=== PATIENT | male | born 1955 | race Caucasian/White ===

== ENCOUNTER 2023-08-23 18:32 | Emergency (ER) | payer MEDICARE, OTHER, SELFPAY ==
[2023-08-23 18:35] VITALS: BP 145/94
--- NOTE | 2023-08-23 19:04 | ED.GENMED ---
History of Present Illness
General
Chief Complaint: Back Pain
Source: patient
Exam Limitations: none
Time Seen by Provider: 08/23/23 18:49
History of Present Illness
History of Present Illness:
67-year-old male presents complaining of right flank pain that started 3 to 4 days ago. Its intermittent pain. Notes worse with motion change. No radiation of the pain down the legs. No urinary symptoms. No nausea or vomiting. Patient believes
though he has a kidney infection. No other complaints at this time
Past History
Past History
ED Past Medical History: None
Social History
Tobacco: Non-smoker
Alcohol: None
Family History
Family History: Negative Early CAD
Phy Exam
Physical Exam
Physical Exam:
General: Well-appearing male no acute respiratory distress
HEENT: Normocephalic atraumatic
Heart: Regular rate and rhythm no murmurs
Lungs: Clear no wheeze or rales
Musculoskeletal exam: Right flank tenderness is noted.
Abdomen: Soft nontender nondistended no guarding or rebound
ext: No cyanosis or edema.
Course
Orders/Labs/Results
Orders:
Orders
08/23/23 19:03
CT Abd/pel Without Iv Or Oral Urgent
Comment:
Reason For Exam: right flank pain
08/23/23 19:45
Complete Blood Count/With Diff Urgent
Comprehensive Metabolic Panel Urgent
Urinalysis Reflex To Culture Urgent
Date Specimen was Collected: 08/23/23
Time Specimen was Collected: 19:16
Urine Microscopic Reflex Cult Urgent
Urine Culture Urgent
ROSALIE Source: U
Specimen Description:
Date Specimen was Collected: 08/23/23
Time Specimen was Collected: 19:16
08/23/23 19:50
Ct Chest/Abd/Pel Angio W/Wo Iv Urgent
Reason For Exam: mid back pain
Abnormal Lab Results
08/23/23
19:45
WBC 13.2 H 10^3/uL
(4.8-10.8)
RDW 14.9 H %
(11.5-14.5)
Abs Immat Gran (auto) 0.2 H 10^3/uL
(0-0.05)
Absolute Neuts (auto) 9.7 H 10^3/uL
(1.4-6.5)
Absolute Monos (auto) 1.0 H 10^3/uL
(0.1-0.6)
Immature Gran % 1.3 H %
(0-0.5)
Lymphocytes % 15.6 L %
(20.5-51.1)
Glucose 126 H mg/dl
(70-99)
Urine Bilirubin 1+ A
(Negative)
Leukocyte Esterase Rfl Trace A
(Negative)
Urine Bacteria (Reflex) Moderate A
(Negative)
08/23/23 19:45
08/23/23 19:45
Vital Signs
Initial and Last Documented VS:
Initial Vital Signs
Temp Pulse Resp BP Pulse Ox
98.0 F 95 16 145/94 98
08/23/23 18:35 08/23/23 18:35 08/23/23 18:35 08/23/23 18:35 08/23/23 18:35
Last Documented Vital Signs
Temp Pulse Resp BP Pulse Ox
98.0 F 90 18 135/70 95
08/23/23 18:35 08/23/23 20:23 08/23/23 20:23 08/23/23 20:24 08/23/23 20:30
MDM/Problems Addressed
Differential Diagnosis Includes:
Mid back and right flank pain. Consider musculoskeletal flank pain versus renal colic versus infection
Urinalysis pending labs pending. CT
*Critical Care Note
Total Time (30-74mins, 75-104mins- exclusive of procedures): Not Applicable
Update Note
Update Note:
Initial CT to evaluate for right flank pain was negative for renal stones however did demonstrate 5 cm abdominal aortic aneurysm with internal calcification. Dissection could not be ruled out. This was followed by CT angiogram of the chest abdomen
pelvis was confirms a 5.1 cm fusiform abdominal aortic aneurysm without cute dissection. Urinalysis shows bacteria in the urine. White blood cell count in the blood is 13,000. Will cover with antibiotic for potential UTI. Will recommend close
follow-up with vascular specialist for evaluation of his abdominal aortic aneurysm
ED Attending Note
-
Portions of this chart may have been created with voice recognition software.� Occasional wrong word or��sound alike� substitutions may have occurred due to the inherent limitations of voice recognition software.
Discharge Plan
Departure
Patient Disposition: Home (Routine Discharge)
Date of Disposition: 08/23/23
Time of Disposition: 21:40
Patient with high blood pressure during this ER visit?: No
Discharge Problem:
Acute UTI, AAA (abdominal aortic aneurysm)
Prescriptions:
New
cefdinir 300 mg capsule
300 mg PO BID Qty: 14 0RF
No Action
ibuprofen [Advil] 200 MG tablet
200 mg PO PRN PRN (Reason: pain)
Patient Comments:
not sure of dose, usually takes 2-3 bid prn
atorvastatin 40 MG tablet
40 mg PO QPM Qty: 30 2RF
acetaminophen 325 MG tablet
325 mg PO Q4HPRN PRN (Reason: mild pain) Qty: 0 0RF
famotidine 40 MG tablet
40 mg PO DAILY Qty: 30 2RF
clopidogrel 75 MG tablet
75 mg PO DAILY Qty: 30 11RF
aspirin 81 MG tablet,delayed release (DR/EC)
81 mg PO DAILY Qty: 0 0RF
carvedilol 3.125 MG tablet
3.125 mg PO BID Qty: 60 2RF
nitroglycerin 0.4 MG tablet, sublingual
0.4 mg sublingual [id number] PRN (Reason: chest pain) Qty: 25 2RF
Referrals:
Rose Marie John MD [Family Provider] -
Navdeep Servin MD [Active] -
Activity Restrictions/Additional Instructions:
Take antibiotics as directed. As discussed, you have an abdominal aortic aneurysm. This needs to be followed up closely with a vascular specialist, a name was provided on this paperwork. Please call them tomorrow to set an appointment. Return
here for worsening symptoms otherwise
Interventions
Interventions:
*Risk Screen - Suicide Last Done: 08/23/23 20:16
*General Assessment Last Done: 08/23/23 19:28
*Neglect/Abuse Screening Last Done: 08/23/23 20:16
ED- Fall Risk Assessment Last Done: 08/23/23 19:42
*ED COVID-19 Vaccine History Last Done: 08/23/23 18:35
ED-Musculoskeletal Assessment Last Done: 08/23/23 20:35
Discharge Date and Time
Print Language: MALAY
[2023-08-23 19:28] VITALS: BMI 35.9
[2023-08-23 19:53] LABS: % Basophils 0.5 % (0-2); % Immature Granulocytes 1.3 % (0-0.5); % Lymphocytes 15.6 % (20.5-51.1); % Monocytes 7.9 % (1.7-9.3); % Neutrophils 73.7 % (42.2-75.2); Absolute Basophils 0.1 10^3/uL (0-0.2); Absolute Eosinophils 0.1 10^3/uL (0-0.7); Absolute Immature Granulocytes 0.2 10^3/uL (0-0.05); Absolute Lymphocytes 2.1 10^3/uL (1.2-3.4); Absolute Neutrophils 9.7 10^3/uL (1.4-6.5); Hematocrit 46.2 % (39.0-52.0); Hemoglobin 15.5 g/dL (13.0-18.0); Mean Corp Hgb Conc. 33.5 g/dL (33.0-37.0); Mean Corpuscular Hgb 28.9 pg (27.0-31.0); Mean Platelet Volume 9.6 fL (7.4-10.4); Nucleated Red Blood Cells % 0 % (-); Platelet Count 300 10^3/uL (130-400); Red Blood Cell Count 5.37 10^6/uL (4.70-6.10); Red Cell Dist. Width 14.9 % (11.5-14.5); White Blood Cell Count 13.2 10^3/uL (4.8-10.8)
[2023-08-23 19:57] LABS: Urine Albumin Negative (Neg - Trace); Urine Bilirubin 1+ (Negative); Urine Character Clear (Clear); Urine Color Yellow; Urine Glucose Negative (Negative); Urine Ketone Negative (Negative); Urine Leukocyte Trace (Negative); Urine Nitrite Negative (Negative); Urine Occult Blood Negative (Negative); Urine Urobilinogen 1+ (Neg - 1+)
[2023-08-23 20:06] LABS: Urine Bacteria Moderate (Negative); Urine Mucus Moderate; Urine Red Blood Cell 0-2 /HPF (0-2)
[2023-08-23 20:07] LABS: ALT (SGPT) 24 U/L (0-50); AST (SGOT) 23 U/L (17-59); Albumin 4.1 g/dl (3.5-5.0); Alkaline Phosphatase 113 U/L (38-126); Blood Urea Nitrogen 16 mg/dl (9-20); Calcium 9.8 mg/dl (8.4-10.2); Carbon Dioxide 29 mmol/L (22-30); Chloride 104 mmol/L (98-107); Estimated Creatinine Clearance > 125 ml/min; Glucose 126 mg/dl (70-99); Potassium 3.7 mmol/L (3.5-5.1); Sodium 139 mmol/L (135-145); Total Bilirubin 0.8 mg/dl (0.2-1.3); Total Protein 7.2 g/dl (6.3-8.2); eGFR > 60.00
[2023-08-23 20:23] VITALS: BP 135/70
[2023-08-23 20:24] VITALS: BP 135/70
[2023-08-23 21:33] VITALS: BP 135/88
== END 2023-08-23 22:03 | disposition home or self-care (01) ==
LOC: EMR 18:32
PROVIDERS: Physician Assistant; EMERGENCY PHYSICIAN Emergency Medicine; FAMILY PHYSICIAN Family Medicine
DX: R10.9 Unspecified abdominal pain (principal); M54.6 Pain in thoracic spine; N39.0 Urinary tract infection, site not specified; I71.40 Abdominal aortic aneurysm, without rupture, unspecified; Z79.82 Long term (current) use of aspirin
CPT/HCPCS: 99285; 71275; 74174; 74176; 80053; 81003; 81015; 85025; 87086; Q9967

== ENCOUNTER → 2023-09-28 08:25 | Outpatient (REF) | payer OTHER, SELFPAY | LOC: DHCBC/DCA 08:25 | PROVIDERS: ATTENDING PHYSICIAN Internal Medicine Cardiovascular Disease; FAMILY PHYSICIAN Family Medicine | DX: Z01.818 Encounter for other preprocedural examination (principal); I71.40 Abdominal aortic aneurysm, without rupture, unspecified; I25.2 Old myocardial infarction | CPT/HCPCS: 78452; 93017; A9500; J2785 ==

== ENCOUNTER 2023-09-30 06:45 | Day surgery (SDC) | payer OTHER, SELFPAY ==
[2023-09-30] VITALS (9 sets, daily range): BP systolic 127–171; BP diastolic 66–95; BMI 38.4
[2023-09-30] MEDS: NSS 343 ML IV (07:30)
[2023-09-30 07:36] LABS: Glucose - Point of Care 114 mg/dl (70-99)
[2023-09-30 09:41] LABS: ACT-LR - POC 282 Seconds (116-155)
[2023-09-30 10:18] LABS: Glucose - Point of Care 104 mg/dl (70-99)
--- NOTE | 2023-09-30 10:41 | ITS.CL.CATH ---
[employer] - Catheterization
Cardiac Catheterization
Procedure Report:
LEFT HEART CATHETERIZATION
Date of Procedure: September 30, 2023
Referring: Domingo Lawson
PROCEDURES:
1. Left catheterization, coronary angiogram.
2. Ultrasound-guided access.
3. Physiologic functional testing with IFR of in-stent restenosis in the distal RCA.
INDICATION: Abnormal stress test
ACCESS: Right radial artery, 6 Algerian sheath, under ultrasound guidance
HEMODYNAMICS : (mmHg)
AO (s/d) : 108/73
LV (s/d) : 112/9
LVEDP : 12
CORONARY FINDINGS
DOMINANCE: Right
LEFT MAIN: The left main is a large-caliber vessel which gives rise to the left into descending artery and left circumflex artery. There is minimal luminal irregularities.
LEFT ANTERIOR DESCENDING: The left into descending artery is a large-caliber vessel which gives rise to multiple small caliber diagonal branches as it courses through the anterior interventricular groove towards the apex. There is minimal luminal
irregularities.
CIRCUMFLEX: The left circumflex artery is a medium caliber vessel which gives rise to 2 major obtuse marginal branches. There is mild diffuse atherosclerotic plaque.
RIGHT CORONARY ARTERY: The right coronary artery is a large-caliber, dominant vessel which is rise to the right posterior descending artery and a large right posterolateral system. There is mild diffuse atherosclerotic plaque in the proximal to mid
RCA. Previously placed mid to distal RCA stents from 2013 and have 50% in-stent restenosis at worst. iFR was performed here which was negative at 0.99.
HEMODYNAMIC ASSESSMENT OF THE DISTAL RCA WITH A 22nd Century [employer] OMNI WIRE: The origin of the right coronary was cannulated with a 6 Fr JR4 guide catheter. Intravenous heparin was administered and the ACT was followed during the procedure. Two hundred
micrograms of intracoronary nitroglycerin was given through the guide catheter. A Runge Omni wire was advanced to the guide catheter tip and normalized just outside of guide catheter. The Omni wire was then carefully manipulated across the
in-stent restenosis of distal RCA with the iFR below the ischemic threshold serially measuring 0.99, 1.0, 1.0. The Omni wire was then pulled back to the guide catheter where the Pd/Pa measured 1.0 confirming no baseline drift in pressure readings
SEDATION: 50 minutes of procedural sedation was utilized. An independent director medical science was present to assist with and help manage the patient's level of consciousness and physiologic status.
RADIATION SUMMARY: Fluoro Time (min): 4.5, Dose (mGy): 495.88, DAP (Gy.cm2) : 45.8
Closure Device: Vascular band over right radial artery, 13 cc of air.
CONCLUSIONS
1. Non-obstructive coronary artery disease.
2. 50% in-stent restenosis of previously placed mid and distal RCA stents, IFR negative at 0.99.
3. Normal LVEDP at 12 mmHg.
RECOMMENDATIONS
1. Wean radial band per protocol.
2. Continued aggressive management of cardiovascular risk factors.
Copy to: Domingo Lawson
Anais Cheng MD, [facility], [facility]
== END 2023-09-30 12:48 | disposition home or self-care (01) ==
LOC: CATH 06:45
PROVIDERS: ATTENDING PHYSICIAN Internal Medicine Interventional Cardiology; FAMILY PHYSICIAN Family Medicine
DX: I25.10 Atherosclerotic heart disease of native coronary artery without angina pectoris (principal); R94.39 Abnormal result of other cardiovascular function study; T82.855A Stenosis of coronary artery stent, initial encounter; Y83.1 Surgical operation with implant of artificial internal device as the cause of abnormal reaction of the patient, or of later complication, without mention of misadventure at the time of the procedure; Z79.899 Other long term (current) drug therapy; Z79.84 Long term (current) use of oral hypoglycemic drugs
CPT/HCPCS: 99152; 99153; 82962; 85347; 93458; 93571; C1769; C1894; Q9967

== ENCOUNTER 2023-10-08 06:00 | Inpatient (IN) | payer OTHER, SELFPAY ==
[2023-09-24 09:04] VITALS: BMI 37.8
[2023-09-24 10:23] LABS: % Basophils 0.9 % (0-2); % Eosinophils 1.3 % (0-6); % Immature Granulocytes 1.5 % (0-0.5); % Lymphocytes 22.7 % (20.5-51.1); % Monocytes 8.8 % (1.7-9.3); % Neutrophils 64.8 % (42.2-75.2); Absolute Basophils 0.1 10^3/uL (0-0.2); Absolute Eosinophils 0.2 10^3/uL (0-0.7); Absolute Immature Granulocytes 0.2 10^3/uL (0-0.05); Absolute Lymphocytes 2.8 10^3/uL (1.2-3.4); Absolute Monocytes 1.1 10^3/uL (0.1-0.6); Absolute Neutrophils 7.9 10^3/uL (1.4-6.5); Hematocrit 49.7 % (39.0-52.0); Hemoglobin 16.3 g/dL (13.0-18.0); Mean Corp Hgb Conc. 32.8 g/dL (33.0-37.0); Mean Corpuscular Hgb 28.8 pg (27.0-31.0); Mean Platelet Volume 10.7 fL (7.4-10.4); Nucleated Red Blood Cells % 0 % (-); Platelet Count 330 10^3/uL (130-400); Red Blood Cell Count 5.65 10^6/uL (4.70-6.10); Red Cell Dist. Width 15.1 % (11.5-14.5); White Blood Cell Count 12.2 10^3/uL (4.8-10.8)
[2023-09-24 10:42] LABS: Blood Urea Nitrogen 17 mg/dl (9-20); Calcium 9.8 mg/dl (8.4-10.2); Carbon Dioxide 31 mmol/L (22-30); Chloride 101 mmol/L (98-107); Estimated Creatinine Clearance 96 ml/min; Glucose 120 mg/dl (70-99); Potassium 4.5 mmol/L (3.5-5.1); Sodium 140 mmol/L (135-145); eGFR > 60.00
[2023-09-24 10:43] LABS: INR 0.97; PT 12.9 Sec (11.4-14.6)
[2023-09-24 10:44] LABS: APTT 35.1 Sec (23.4-35.0)
[2023-10-08] VITALS (25 sets, daily range): BP systolic 111–162; BP diastolic 52–99; BMI 38.0; BMI 39.2
--- NOTE | 2023-10-08 06:49 | W.SUR.PREOP ---
Pre-Operative Surgical Note
-
I have examined this patient prior to the performance of the scheduled procedure.
The patient's condition is unchanged from the time of the current History and
Physical and the patient is able to undergo the scheduled procedure.
[2023-10-08] MEDS: NSS 500 IV (06:51)
[2023-10-08] MEDS: PERIDEX 0.12% ORAL RINSE 15 ML PO (06:51)
[2023-10-08] MEDS: BACTROBAN NASAL 1 GRAM NASAL (06:51)
[2023-10-08 06:57] LABS: Glucose - Point of Care 139 mg/dl (70-99)
[2023-10-08 11:16] LABS: Glucose - Point of Care 129 mg/dl (70-99)
--- NOTE | 2023-10-08 11:18 | W.SUR.POST ---
Surgical Immediate Post Op
Note
Pre Op Diagnosis: AAA
Post Op Diagnosis: AAA
Procedure Performed: FEVAR
Primary Surgeon: Navdeep Servin MD
Consulting Senior Practice Director: Nae Felipe PHARMACY COORDINATOR-C
Anesthesia: GETA
Estimated Blood Loss: 30ml
Fluids:See anesthesia flowsheet
Drains/Shunts: N/A
Specimens/Cultures: N/A
Doppler/Duplex/Angio (Y/N): Y
Complications: None
Operative Findings: Bilateral DP pulse +1 post procedure
[2023-10-08] MEDS: PLAVIX 300 MG PO (11:36)
[2023-10-08 11:45] LABS: Hemoglobin 14.7 g/dL (13.0-18.0); Mean Corp Hgb Conc. 33.4 g/dL (33.0-37.0); Mean Corpuscular Hgb 28.9 pg (27.0-31.0); Mean Corpuscular Volume 86.6 fL (80.0-94.0); Mean Platelet Volume 10.6 fL (7.4-10.4); Platelet Count 271 10^3/uL (130-400); Red Blood Cell Count 5.08 10^6/uL (4.70-6.10); Red Cell Dist. Width 14.7 % (11.5-14.5); White Blood Cell Count 20.8 10^3/uL (4.8-10.8)
[2023-10-08 11:50] LABS: INR 1.08
[2023-10-08 11:51] LABS: APTT 33.2 Sec (23.4-35.0)
[2023-10-08 11:57] LABS: Blood Urea Nitrogen 22 mg/dl (9-20); Calcium 8.3 mg/dl (8.4-10.2); Carbon Dioxide 25 mmol/L (22-30); Chloride 103 mmol/L (98-107); Estimated Creatinine Clearance 108 ml/min; Glucose 158 mg/dl (70-99); Potassium 5.5 mmol/L (3.5-5.1); Sodium 133 mmol/L (135-145); eGFR > 60.00
[2023-10-08] MEDS: NSS 1000 IV ×2 (13:15→22:12)
[2023-10-08] MEDS: DILAUDID 0.5 MG IV ×2 (13:16→15:33)
[2023-10-08] MEDS: LOW STRENGTH ASPIRIN 81 MG PO (13:17)
--- NOTE | 2023-10-08 13:30 | PTCARENOTE ---
Rec'd pt from PACU via bed. Rec'd pt awake alert and oriented. Talkative. Admits to chronic 10/10 lower back pain. Medicated with Dilaudid 0.5 mg IV at 1320. Admits also to chronic bilateral arm and leg numbness and some 'pins and needles'. CONWAY.
Denies headache or dizziness. Speech is clear. Skin is pink wm and dry. Bilateral groin incisions with surgical adhesive present. Sites wnl no swelling, drainage or hematoma. + pulses. DP pulses are weak to palpation but easily audible withe the
doppler. PT pulses with the doppler. Legs are warm. PVD skin. Tr LE edema. Respirs are unlabored. Rec'd pt on 6L facemask with sats of 98%- changed over at 1305 to RA with sats of 93%. BS are clear. Monitor SR with BB config. Pt with L radial A
line-site wnl Waveform as documented. Good CMS checks. Overall congruent with cuff BP. Abd is round and soft with hypoactive BS. Denies nausea. Glynn intact for yellow urine. IV NSS hung via R hand at 80 ml/hr. Turned and repositioned. Skin care
given. Call gruber within reach. Pt oriented to ICU room and routine. Plan of care reviewed with pt.
[2023-10-08 13:35] LABS: Glucose - Point of Care 155 mg/dl (70-99)
--- NOTE | 2023-10-08 14:25 | PTCARENOTE ---
O2 sats on RA are 90-91%- placed on 1l nc at 1400 and currently sats are 96-97%.
--- NOTE | 2023-10-08 14:28 | CON.INTV ---
Consultation
Consultation Request
Date/Time Consultation Requested: 10/08/2023
Date/Time Consultation Performed: 10/08/2023 - 1302
Requesting Provider: Dr. Servin
Performing Provider: Dr. Rubalcava
Reason for Consultation: s/p FEVAR
Medical History
-
Chief Complaint: Elective FEVAR
History of Present Illness:
68-year-old male former tobacco smoker with past medical history of AAA, anxiety, arthritis, depression, DM type II, history of cardiac arrest, CAD s/p PCI with BMS to proximal + distal RCA for history of inferior [place], RBBB, hyperlipidemia,
polyneuropathy and history of fall off ladder resulting in 91 broken bones (2003) who presents with FEVAR for AAA. Patient known to vascular surgery with last office visit on 08/28/[address] Servin. Patient has known infrarenal abdominal aortic
aneurysm without rupture and his CTA of his chest, abdomen, pelvis from August 2023 was reviewed. He has what appears to be a penetrating ulcer in the distal aortic arch and an infrarenal aneurysm with no suitable infrarenal neck. Fenestrated
endograft with FEVAR was discussed with risks + benefits, and patient agreed to surgical intervention. Today, patient underwent FEVAR with EBL 30 mL, no complications and transferred to ICU postoperatively for further care. Critical care services
consulted for additional management/recommendations.
When I saw the patient he was in bed, on 1 L/min breathing comfortably saturating 96%, heart rate 90, BP 154/77 (via arterial line), and BP 138/99 (via NIBP). He feels well, denies chest pain, headache, abdominal pain, fevers or chills. She denies
shortness of breath unless he does more activity. He says he quit smoking on August 23, 2023. He does admit to smoking marijuana, last smoked last night. 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
PMHx: AAA, anxiety, arthritis, depression, DM type II, history of [place], migraine headaches, RBBB, history of penetrating ulcer of aorta, tobacco use disorder, history of cardiac arrest, insomnia, umbilical hernia
PSHx: Tonsillectomy, right knee arthroscopy, left knee arthroscopy, s/p coronary stents (2012), bone repair of femur (1974)
Past Medical History
Past Medical History: Other (Above as per HPI)
Past Surgical History: Other (Above as per HPI)
Social History
Tobacco: Former Smoker (Quit on August 23, 2023; prior to that was smoking 1 pack per week, previously was smoking more heavily (1-1.5PPD x 13 years))
Alcohol: None
Drug: Marijuana
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
Family History
Family History: Cancer (Maternal grandfather: Lung cancer; maternal grandmother: Lymphoma)
Allergies / Home Medications
Allergies
Allergy/AdvReac Type Severity Reaction Status Date / Time
No Known Allergies Allergy Verified 10/08/23 06:26
Home Medications
�Medication �Instructions �Recorded �Confirmed �Last Taken �Type
pregabalin 150 mg capsule 150 mg PO BID Pain 09/21/23 10/08/23 10/07/23 20:00 History
tramadol 50 mg tablet 50 mg PO TID Pain 09/21/23 10/08/23 10/07/23 20:30 History
aspirin 81 mg chewable tablet 81 mg PO DAILY Blood Clot 09/30/23 10/08/23 10/07/23 20:00 History
Prevention/Tx
metformin 500 mg tablet 500 mg BID Diabetes 09/30/23 10/08/23 10/06/23 08:00 History
rosuvastatin 40 mg tablet 40 mg PO DAILY High Cholesterol 09/30/23 10/08/23 10/07/23 20:00 History
cholecalciferol (vitamin D3) 25 25 mcg PO HS Supplement 10/08/23 10/08/23 10/07/23 20:00 History
mcg (1,000 unit) capsule (Vitamin
D3)
Review of Systems
-
History Source: Patient
All other systems: Negative unless noted
Vitals / Labs / Diagnostic Testing
Vital Signs
Temp Pulse Resp BP Pulse Ox
97.1 F 88 13 127/69 94
10/08/23 12:05 10/08/23 14:15 10/08/23 14:15 10/08/23 14:01 10/08/23 14:15
Lab Data
10/08/23 11:24
10/08/23 11:24
Laboratory Results
10/08/23
11:24
PT 14.0
INR 1.08
APTT 33.2
Diagnostic Testing:
Physical Exam
-
HEENT: Normocephalic and Anicteric
Cardiovascular: S1/S2 and Peripheral Edema (Trace lower extremity edema bilaterally)
Respiratory: Wheeze (Negative ), Rales (Negative), Rhonchi (Negative) and Non-Labored Respirations
GI: Soft, Distended (Abdominal obesity), Non Tender, Normal Bowel Sounds and Other (Umbilical hernia)
Neurology: AO x 3 and Tremors (Negative)
Skin: Warm and Dry
General: Respiratory Distress (Negative), Comfortable, Fever (Negative), Chills (Negative) and Sweats (Negative)
Assessment
-
Assessment: 68-year-old male former tobacco smoker with past medical history of AAA, anxiety, arthritis, depression, DM type II, CAD s/p PCI with BMS to proximal + distal RCA for history of inferior W[place], RBBB, hyperlipidemia, polyneuropathy and
history of fall off ladder resulting in 91 broken bones (2003) who presents with FEVAR for AAA. Patient known to vascular surgery with last office visit on 08/28/[address] Servin. Patient has known infrarenal abdominal aortic aneurysm without
rupture and his CTA of his chest, abdomen, pelvis from August 2023 was reviewed. He has what appears to be a penetrating ulcer in the distal aortic arch and an infrarenal aneurysm with no suitable infrarenal neck. Fenestrated endograft with FEVAR
was discussed with risks + benefits, and patient agreed to surgical intervention. Today, patient underwent FEVAR with EBL 30 mL, no complications and transferred to ICU postoperatively for further care. Critical care services consulted for
additional management/recommendations.
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
Impression:
#AAA s/p FEVAR (POD#0)
#Former tobacco use disorder ([id number] Hx, quit August 2023)
#Leukocytosis � likely reactive and not due to active infection
#Hyponatremia
#Hyperkalemia (mild)
#Scattered pneumatoceles with faint paraseptal emphysema
Plan:
Postoperative surgical intensive care unit monitoring
Supplemental oxygen as needed to maintain SpO2 >90-94%
prn nebulized bronchodilators
Incentive spirometry encouraged 10x per hour for at least 4 hrs a day
Aspiration precautions
Neuro and vascular checks per protocol
Maintain MAP>65
Replete electrolytes with K>4, Mg>2
Maintain euglycemia with goal BG 140-180
Continue to trend WBC count; patient nontoxic-appearing, trend WBC and monitor for any fever
If patient spikes fever, panculture and consider starting broad-spectrum antibiotics at that time
Trend serum Na and [K]
- goal K 4 - 5.2
- Goal Na 135-145
Vascular surgery following-correspondence and operative notes reviewed
DVT prophylaxis
Early nutrition
Early mobilization
Given his history of significant tobacco use, quit August 2023, he qualifies for lung cancer screening via annual LDCT chest. He says that his PCP ordered this for him. He recently had a CT chest on 08/23/2023 with no concerning lung nodule seen and
his next LDCT chest should be July 2024. He also endorses insomnia, and I offered him to be seen in the Pulmonary/Sleep office. I will arrange this for him.
Continue ICU level of care.
Critical care statement: A total of 44 minutes of critical care time was provided for this patient today. This includes management of unstable vital signs, evaluation of the patient at bedside, reviewing the patient's pertinent medical records
including radiographs, microbiology, laboratory evaluations, and discussion with primary team, consultants, pharmacy, nutrition, physical therapy, case management, charge nurse, critical care nursing, and respiratory therapy.
[2023-10-08] MEDS: NOVOLOG FLEXPEN-LOW RESISTANCE 1 UNITS SC (14:30)
--- NOTE | 2023-10-08 14:55 | PTCARENOTE ---
Remains resting. Starla Servin and Khadar in to see pt and updated. Still admits to back pain but is talkative and was able to eat lunch without difficulty. Groin sites unchanged.
--- NOTE | 2023-10-08 15:21 | CM ---
CM following re: discharge planning.
Reviewed pt's chart, met with pt.
Pt is a 68 year old male, admitted with primary dx of AAA s/p FEVAR (POD#0).
Pt reports he lives alone on the second floor apartment on a top of his garage. Pt reports he has a dog. Pt reports his ex- cannot help him and daughter is estranged from him due to her substance abuse problems. Pt reports he ambulates with a
walker at baseline, has a cane. pt stated he will need some help at home. VN services discussed, pt expressed his agreement and he preferred VN. A referral to [facility] made.
Pt sttaed his neighbor is taking care of his dog while pt is in the hospital.
Also, pt stated he had Medicaid before and it was cut off due to his income. Pt stated he will re-apply for Medicaid and community based services. Pt is aware that [facility] social worked will help to enroll him for community based services.
PCP: Rose Marie John
Pharmacy: [facility]
D/C plan: home with [facility] and to follow up with [facility] for community based services.
CM will follow with discharge plan updates as hospitalization progresses
--- NOTE | 2023-10-08 15:35 | SUR.OPER ---
Good toleration of lunch. No nausea. Despite repositioning pt c/o back pain 12/09- States it is his chronic pain. Remedicated with Dilaudid 0.5 mg IV. Pulses unchanged. VS as documented. Incisions unchanged. Repositioned. Call gruber in reach.
[2023-10-08 17:07] LABS: Glucose - Point of Care 251 mg/dl (70-99)
[2023-10-08] MEDS: NOVOLOG FLEXPEN-MODERATE RESISTANCE 5 UNITS SC (18:31)
[2023-10-08] MEDS: NOVOLOG FLEXPEN-LOW RESISTANCE SC (18:34)
[2023-10-08] MEDS: ULTRAM 50 MG PO (18:37)
--- NOTE | 2023-10-08 18:40 | PTCARENOTE ---
Pt with 6/10 lower back pain. Did not want Dilaudid - stated Tramadol tends to work for him. Order obtained and Tramadol 50 mg po given. Is due for his Lyrica at 1999 that he said also helps. Repositioned. Assessment overall is unchanged - L groin
site is sl ecchymotic but no swelling or drainage. Eating dinner. Will continue to monitor. Call gruber in reach.
[2023-10-08] MEDS: HEPARIN 5000 UNITS SC (19:36)
[2023-10-08] MEDS: LYRICA 150 MG PO (19:36)
--- NOTE | 2023-10-08 20:25 | PTCARENOTE ---
Pt s/p FEVAR, bilateral groin sites slightly ecchymotic, skin glue intact, edges approximated. Strong doppler signals heard on distal pulses. Pain management as per APR. BP goal appreciated. Pt resting comfortably at this time. Will monitor and
assess pulses hourly. Pt updated on plan of care.
[2023-10-08] MEDS: VITAMIN D3 (cholecalciferol) 25 MCG PO (22:12)
[2023-10-08 22:24] LABS: Glucose - Point of Care 139 mg/dl (70-99)
[2023-10-09] VITALS (10 sets, daily range): BP systolic 103–128; BP diastolic 56–94; BMI 39.2
[2023-10-09] MEDS: LIDOCAINE 4% PATCH 1 PATCH TOPICAL (00:50)
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
[2023-10-09 04:20] LABS: INR 1.13; PT 14.5 Sec (11.4-14.6)
[2023-10-09 04:21] LABS: APTT 28.6 Sec (23.4-35.0)
[2023-10-09 04:24] LABS: Hematocrit 38.9 % (39.0-52.0); Hemoglobin 13.3 g/dL (13.0-18.0); Mean Corp Hgb Conc. 34.2 g/dL (33.0-37.0); Mean Corpuscular Hgb 30.3 pg (27.0-31.0); Mean Corpuscular Volume 88.6 fL (80.0-94.0); Mean Platelet Volume 10.6 fL (7.4-10.4); Platelet Count 208 10^3/uL (130-400); Red Blood Cell Count 4.39 10^6/uL (4.70-6.10); Red Cell Dist. Width 14.6 % (11.5-14.5); White Blood Cell Count 18.6 10^3/uL (4.8-10.8)
[2023-10-09 04:28] LABS: Blood Urea Nitrogen 25 mg/dl (9-20); Carbon Dioxide 28 mmol/L (22-30); Chloride 102 mmol/L (98-107); Estimated Creatinine Clearance 110 ml/min; Glucose 142 mg/dl (70-99); Phosphorus 3.3 mg/dl (2.5-4.5); Potassium 4.1 mmol/L (3.5-5.1); Sodium 134 mmol/L (135-145); eGFR > 60.00
--- NOTE | 2023-10-09 04:30 | PTCARENOTE ---
No change in previous assessment. Doppler signals heard in B/L lower extremities. AM labs sent and pending. Will monitor.
--- NOTE | 2023-10-09 08:07 | W.PN.INTV ---
Today's Communication / Plan
Recommendations
Glynn removal with voiding trial
Pain control
Up OOB as tolerated
Encourage incentive spirometer use
Patient likely being prepared for discharge home today. Otherwise he is stable for downgrade to telemetry. Super[employer]/pulmonary service will sign off. Please call back with any additional questions or concerns.
Assessment
-
Assessment: 68-year-old male former tobacco smoker with past medical history of AAA, anxiety, arthritis, depression, DM type II, CAD s/p PCI with BMS to proximal + distal RCA for history of inferior MO, RBBB, hyperlipidemia, polyneuropathy and
history of fall off ladder resulting in 91 broken bones (2003) who presents with FEVAR for AAA. Patient known to vascular surgery with last office visit on 08/28/[address] Servin. Patient has known infrarenal abdominal aortic aneurysm without
rupture and his CTA of his chest, abdomen, pelvis from August 2023 was reviewed. He has what appears to be a penetrating ulcer in the distal aortic arch and an infrarenal aneurysm with no suitable infrarenal neck. Fenestrated endograft with FEVAR
was discussed with risks + benefits, and patient agreed to surgical intervention. Today, patient underwent FEVAR with EBL 30 mL, no complications and transferred to ICU postoperatively for further care. Critical care services consulted for
additional management/recommendations.
Chronic conditions [employer]: AAA, anxiety, arthritis, depression, DM type II, history of MO, migraine headaches, RBBB, history of penetrating ulcer of aorta, tobacco use disorder, history of cardiac arrest, insomnia, umbilical hernia
Impression:
#AAA s/p FEVAR (POD#1)
#Former tobacco use disorder ([id number] Hx, quit August 2023)
#Leukocytosis � likely reactive and not due to active infection - improving WBC today
#Hyponatremia - improving
#Hyperkalemia (mild) - resolved
#Scattered pneumatoceles with faint paraseptal emphysema
Plan:
Postoperative surgical intensive care unit monitoring
Supplemental oxygen as needed to maintain SpO2 >90-94%
prn nebulized bronchodilators
Incentive spirometry encouraged 10x per hour for at least 4 hrs a day
Aspiration precautions
Neuro and vascular checks per protocol
Maintain MAP>65
Replete electrolytes with K>4, Mg>2
Maintain euglycemia with goal BG 140-180
Continue to trend WBC count; patient nontoxic-appearing, trend WBC and monitor for any fever
If patient spikes fever, panculture and consider starting broad-spectrum antibiotics at that time
Trend serum Na and [K]
- goal K 4 - 5.2
- Goal Na 135-145
Vascular surgery following-correspondence and operative notes reviewed
DVT prophylaxis
Early nutrition
Early mobilization
Given his history of significant tobacco use, quit August 2023, he qualifies for lung cancer screening via annual LDCT chest. He says that his PCP ordered this for him. He recently had a CT chest on 08/23/2023 with no concerning lung nodule seen and
his next LDCT chest should be July 2024. He also endorses insomnia, and I offered him to be seen in the Pulmonary/Sleep office. I will arrange this for him.
Patient stable for transfer out of ICU. He may be discharged home today. Defer final disposition decision to vascular surgery, assuming patient can urinate spontaneously after Glynn catheter removal.
Supervisor [employer]/Pulmonary service will now sign off. Thank you for allowing us to be involved in the care of this patient. Please reconsult if there are any additional questions/concerns, or if patient's respiratory status deteriorates.
Total time spent today was 55 minutes for this encounter. Time includes reviewing laboratory test/imaging results, reviewing pertinent medical records, obtaining and reviewing medical history, performing an appropriate exam, ordering medications,
tests and procedures. Time also includes documentation of this encounter, coordinating patient care and communicating with other healthcare professionals. Total time does not include separately billed tests performed on this date of service.
Subjective Dataa
Subjective Data
Date of Service:
Date of Service: October 09, 2023
Chief Complaint: [employer] Follow Up
Subjective:
Patient seen and evaluated today at bedside. He feels well. BP 120/74, heart rate 72, saturating 95% on room air. Afebrile overnight. He is eager to go home. He denies chest pain, headache, abdominal pain, fevers or chills.
Review of Systems
General: Other (Negative unless mentioned above)
Objective Data
Data Reviewed
Vital Signs / I&O / Oxygen:
Vital Signs
Temp Pulse Resp BP Pulse Ox
99.2 F 64 20 136/56 97
10/09/23 08:00 10/09/23 06:30 10/09/23 06:30 10/08/23 19:00 10/09/23 06:30
Intake and Output
10/08/23 10/09/23 10/10/23
06:59 06:59 06:59
Intake Total 2330 / 2330
Output Total 2039 / 2039
Balance 290 / 290
SaO2 97
Nasal Cannula flow liters per 1
minute
Physical Exam
General: Respiratory Distress (Negative), Comfortable and Other (pleasant mood; obese male in NAD)
HEENT: Normocephalic, Anicteric and Other (thick neck)
Cardiovascular: S1-S2 and Peripheral Edema (Negative)
Respiratory: Wheeze (Negative), Crackles (Negative), Rhonchi (Negative) and Non-Labored Respirations
GI: Soft, Distended (Abdominal obesity), Non Tender and Normal Bowel Sounds
Neurology: AO x 3 and Tremors (Negative)
Skin: Warm, Dry and Jaundice (Negative)
Labs/Micro/Reports
Lab Data
10/09/23 03:51
10/09/23 03:51
Laboratory Results
10/08/23 10/09/23
11: 03:51
PT 14.0 14.5
INR 1.08 1.13
APTT 33.2 28.6
--- NOTE | 2023-10-09 08:22 | W.PN.VS ---
Addendum entered and electronically signed by Navdeep Servin MD 10/09/23 09:25:
Seen and examined with CHERRI Felipe. Agree with findings as noted below. Patient is without any complaints. No abdominal pain. Tolerated diet. On exam abdomen is soft, nondistended, nontender. Groins flat bilaterally. Small incisions clean dry and
intact bilaterally. Feet are warm with palpable DP pulses bilaterally. Plan/as discussed and noted below.
Original Note:
Today's Communication / Plan
-
Patient seen and examined at bedside with Dr. Navdeep Servin, below plan reviewed with attending
Assessment/Plan
-
Assessment: 60-year-old male POD #1 FEVAR for AAA
Plan:
Discontinue IV fluids
Discontinue Glynn catheter
Out of bed to chair, progression to ambulation as tolerated
Continue dual antiplatelet of aspirin and Plavix
Possible discharge later today pending spontaneous urination after Glynn catheter removal and continued progression
Subjective Data
-
Date of Service: October 09, 2023
Patient seen and examined at bedside, offers no complaint. Reports continued chronic back pain but denies pain at bilateral groin puncture sites. Reports chronic back pain is well-managed and tolerated. Denies nausea, vomiting, fever, and chills.
Currently eating breakfast and reports tolerating p.o. diet. Reports eagerness for discharge to home when deemed appropriate.
Objective Data
-
Vital Signs
Temp Pulse Resp BP Pulse Ox
99.1 F 64 20 136/56 97
10/09/23 04:48 10/09/23 06:30 10/09/23 06:30 10/08/23 19:00 10/09/23 06:30
Intake and Output
10/08/23 10/09/23 10/10/23
06:59 06:59 06:59
Intake Total 2330 / 2330
Output Total 2039 / 2039
Balance 290 / 290
Intake:
Oral fluids 970 / 970
IV fluids (Total) 1359
Nss 1,000 ml @ 80 mls/hr IV . 1359
[id number] Rx#:[id number]
Output:
Urine, Glynn 2039
Lab Results
10/09/23 03:51
10/09/23 03:51
Calcium 8.0 mg/dl (8.4-10.2) L 10/09/23 03:51
Phosphorus 3.3 mg/dl (2.5-4.5) 10/09/23 03:51
Magnesium 2.0 mg/dl (1.6-2.3) 10/09/23 03:51
Physical Exam
-
AAOx3, no apparent distress
No tachycardia
No dyspnea on room air
ABD rotund, umbilical hernia present, nontender, nondistended
Bilateral groin sites CDI, Exofin glue intact, all compartments soft, no evidence of hematoma
Bilateral feet warm, +1 palpable DP pulses
Glynn draining clear yellow urine
[2023-10-09] MEDS: NOVOLOG FLEXPEN-MODERATE RESISTANCE 1 UNITS SC (08:26)
[2023-10-09 08:36] LABS: Glucose - Point of Care 171 mg/dl (70-99)
[2023-10-09] MEDS: HEPARIN 5000 UNITS SC (08:49)
[2023-10-09] MEDS: LOW STRENGTH ASPIRIN 81 MG PO (08:50)
[2023-10-09] MEDS: CRESTOR 40 MG PO (08:50)
[2023-10-09] MEDS: LYRICA 150 MG PO (08:50)
[2023-10-09] MEDS: PLAVIX 75 MG PO (08:50)
[2023-10-09] MEDS: ULTRAM 50 MG PO (08:54)
[2023-10-09] MEDS: FLUSH (NSS) 1 FLUSH IV (08:55)
--- NOTE | 2023-10-09 09:00 | PTCARENOTE ---
Rec'd pt at 0800 awake alert and oriented resting in bed. Very talkative. Overall states he is ok and is hopeful to go home today to take care of his [place] [employer]. Denies groin discomfort but admits to anywhere from 6-7t to 10/10 chronic back pain
as well as arm and leg numbness and tingling. Extremities are warm. CONWAY. Speech is clear. Denies dizziness or headache. Skin is pink wm and dry Bilat groin incisions with surgical adhesive in place. Approximated. L groin with some ecchymosis but no
swelling or hematoma. + pulses. Bilateral PT pulses with the doppler . DP pulses are weakly palpable. TR le edema. Extremities are warm. Respirs are unlabored. Rec'd pt on 1L nc with sats of 96%. Changed to RA at 0900 with sats of 93%. BS are sl
decreased at the bases. Getting about 2000 on IS. Denies shortness of breath. Monitor SR with PAC's and BB config. ECG done per MD Order.VS as documented. ABd is obese/round with + BS. admits to some abd fullness but no nausea. Pt has an umbilical
hernia. Thermistor valencia intact for yellow urine. Plan to DC valencia after pt finiished breakfast. IV fluids capped currently. Capped ints intact R and L hand-sites wnl. Pt able to assist with repositioning. Call gruber in reach. Plan of care reviewed
with pt. Dr. Servin in to see pt and updated.
--- NOTE | 2023-10-09 10:14 | CM ---
CM following re: discharge planning.
Reviewed pt's chart, met with pt.
Per vascular surgery, pt most likely will be discharged home today afternoon. Pt is aware, expressed his agreement and pt started his best friend Matthew will transport home. IMM reviewed, placed on chart, pt has a copy.
PT is aware that [facility] will provide after skilled nursing care: PT, OT, RN and SW to assist with applying for community based services.
CM provided pt with information and phone number for [facility] to initiate a request and evaluation for community based services eligibility.
Please fax discharge instructions to [facility] at [phone].
D/C plan: home with [facility], follow up with [facility], friend and family support. Best friend Matthew to transport.
No other discharge needs identified.
--- NOTE | 2023-10-09 10:30 | PTCARENOTE ---
Pt resting. Currently Gretta woodward'd per md order. Mouth care done (denture care) and CHG bath given. Pt then assisted oob to the chair with just RN for supervision. Able to stand ok but feels like he will need a walker for longer distances. Uses a
walker intermittently at home when needed- mostly initally to start walking then is ok. Call gruber in reach.
[2023-10-09] MEDS: NOVOLOG FLEXPEN-MODERATE RESISTANCE SC (11:45)
[2023-10-09 11:55] LABS: Glucose - Point of Care 124 mg/dl (70-99)
--- NOTE | 2023-10-09 12:30 | PTCARENOTE ---
Remains sitting oob in the chair. Assesment is unchanged. VS as documented. Groin sites and pulses unchanged. States even at home he has touble getting comfortable with his back discomfort. Anxious however to go home for his dog.
--- NOTE | 2023-10-09 13:03 | VNURNOTE ---
Home Health Liaison spoke with patient to discuss [facility] nurse/therapy, visits, schedule and homebound status. Reviewed pet policy at length. Patient has a [place] Marks that is a 'service dog.' Not registered according to patient. Reviewed that per
policy, dog to be put in another room or outside for visits. Patient is agreeable and understands that visits at home will be 1-3 x per week to assess and teach medical management. Patient is aware that [facility] will contact them for start of care
within a few days after discharge from .
[facility] referral completed in [facility].
--- NOTE | 2023-10-09 13:05 | OR.RPT ---
Operative Report
Operative Report
PROCEDURE DATE: 10/08/2023
Preoperative diagnosis: Abdominal aortic aneurysm, possibly symptomatic
Postoperative diagnosis: Same
Procedure:
1. Endovascular repair of abdominal aortic aneurysm with FENESTRATED proximal aortic endoprosthesis (Cook Zenith Z Fen system), bifurcated modular distal aortic endoprosthesis, and bilateral iliac limb extensions. 2 visceral artery endoprosthesis
(bilateral renal artery stents with Atrium iCast 6mm x 22mm balloon mounted covered stent in left renal artery and Grants VBX 7mm x 29mm balloon mounted covered stent in right renal artery). CPT code [id number]
2. Percutaneous bilateral common femoral artery closure.
3. Supervision and interpretation.
Surgeon: Gareth
Wire Fence Erector: CHERRI Felipe, required for all aspects of procedure including assistance with percutaneous suture delivery, catheter and graft delivery, closure.
Complications: None
Anesthesia: General
Indications for procedure:
Abdominal aortic aneurysm approximately 5 cm in size with bilobed appearance, and concerning appearance at the immediate infrarenal neck with saccular protrusion. In addition, patient with symptoms of right sided persistent flank pain. Therefore
concern for symptomatic nature. Risk/benefits/alternatives of aneurysm repair all fully discussed. Patient understood all wish to proceed.
Description of procedure:
Patient was identified brought to the operating room placed on the table in supine position. After the adequate administration of anesthesia and perioperative antibiotics he was prepped and draped in the standard surgical fashion. A standard
preoperative timeout was undertaken and everybody was in agreement the plan. Bilateral common femoral artery access was obtained under direct duplex ultrasound guidance. 6 Macanese sheaths were placed over 0.035 inch wires. Next, small 1 cm
incisions were made around the sheath entry sites bilaterally. Blunt dissection was undertaken with hemostats to facilitate percutaneous suture delivery. Next, using the ProGlide suture system, percutaneous sutures were deployed at the 10:00 and 2
o'clock position bilaterally in the standard fashion. Suture strands were tagged outside the skin. We exchanged for 11 Macanese sheaths bilaterally. Next using a KMP catheter, I guided wires into the supraceliac aorta from bilateral access sites.
On the left side I exchanged out for a pigtail catheter which was positioned in the juxtarenal aorta. The right side I exchanged for a Lunderquist wire. The patient was given an appropriate dose of heparin. Next, the Z FEN proximal fenestrated
endoprosthesis ([id number]) was brought into the field and oriented under fluoroscopy. Confirmation of anterior vertical markers was done, and once oriented, I exchanged out the 11 Macanese sheath for the delivery system with the proximal
endoprosthesis. This was advanced into the abdominal aorta and into the visceral segment. Pigtail catheter from the other side was used for power injection aortography. The positioning of the bilateral renal arteries was then marked on the
screen. Confirming AP orientation (vertical markers anteriorly), and confirming positioning of the renal artery fenestrations (and the SMA scallop), I aligned the stent graft up to the renal arteries and began unsheathing it slightly high
intentionally. After unsheathing the first 2 stents, I reposition such that I was happy and then completed unsheathing of the entire proximal fenestrated endoprosthesis. Next, from my left sided access I used a floppy angled hydrophilic wire to
cannulate into the endoprosthesis, I then advanced the glide catheter over the wire and then exchanged for a Lunderquist wire. I now exchanged my left sided 11 Macanese sheath out for a Grants 18 Macanese dry seal sheath. This was advanced into the
proximal endoprosthesis. Now, I exchanged the Lunderquist wire out over a Vanche 4 catheter. I then exchanged back for a glide wire. Using the flap angled hydrophilic wire was able to cannulate through the left renal fenestration and out into the
left renal artery. I exchanged out my Vanche catheter for a 4 Macanese glide catheter. I had a little trouble getting my catheter out into the renal artery as it kept riding up against the top of the graft and a circuitous fashion. However I was
able to advance my wire out further and in doing so then was able to finally advanced the 4 Macanese glide catheter nicely out into the left renal artery. I relieve the catheter of any redundancy. I then advanced a Chester wire. Again I had a little
difficulty initially, and therefore needed my Glidewire out further and then pushed my catheter out further as well. Then I was able to advance the Chester wire. With stable Chester wire access, I now advanced a curved 6 Macanese Ansell sheath into the
renal artery. Now that I had accessed the left renal artery, I felt that I could lower the main graft down a little bit as it needed to come down slightly. I was able to do this successfully. I repunctured my Grants dry seal and advanced an
additional Glidewire and catheter system. Initially I had some difficulty cannulating the right renal artery using several catheters. Finally, I exchanged for a less angled catheter and was able to cannulate it from slightly downward in. Was able
to pass my wire out into the distal renal artery and then advance my glide catheter over the wire. I then exchanged for a Chester wire on this side as well. I then advanced a 6 Macanese Ansell sheath over the Chester wire. Now, I advanced on the right
side a Grants VBX 7 mm x 29 mm covered graft and through the Ansell sheath (elected to use this stent given slight dilation of the proximal renal artery, and slightly longer length until it normalized). Through the left Ansell sheath I advanced a 6
mm x 22 mm Atrium iCAST stent. Now with the renal stents in position, I released the proximal constraints on the endograft and then released the top cap, thereby releasing the bare-metal stents. I then recaptured the top, and walked out the
delivery device out of the sheath maintaining sheath in place. Next I used a Coda balloon to balloon mold the proximal seal zone in the vicinity of the visceral segment as well. Once this was completed, I then sequentially (first the right side
and then the left) withdrew my sheath and balloon angioplastied the covered balloon mounted stents into place for the renal arteries (in the standard fashion with two thirds out into the renal artery, one third into the aorta). I also then
ballooned the intra-aortic portion of those stents with a 10 mm balloon to flare the intra-aortic portion in the standard fashion.
Now having completed the proximal portion, I then brought the distal bifurcated modular graft onto the field ([id number]) and oriented under fluoroscopy and then advanced it through the right sided sheath. The renal artery sheaths/wires and
catheters were withdrawn bilaterally.
I now advanced the distal bifurcated aortic endoprosthesis with maximum overlap into the proximal body and then on sheath that trying to maintain anterior/slightly anterior lateral positioning of the contralateral gate. (Not crossed). The gait did
flare out slightly laterally. I now used a flap angled hydrophilic wire to try to cannulate the contralateral gate. I tried with several different catheters but really struggled. Due to the lateral flaring out of the gate I had great difficulty.
Finally after trialing many catheters, I used a Arzola catheter and was actually able to gain success with that. After advancing the catheter I advanced a wire and then exchanged for a pigtail catheter. The pigtail catheter spun nicely, I
pushed the pigtail catheter against the top constraint of the distal endoprosthesis and released the top constraint watching the pigtail catheter lurched forward confirming that the pigtail catheter was indeed through the contralateral gate into the
main body of the distal piece. After this confirmation, I then advanced a Lunderquist wire up. I then performed retrograde pelvic angiogram with marker pigtail catheter in place, and was able to determine the length of iliac limb I would need. I
therefore then brought through the Grants dry seal sheath left iliac limb extension ([id number]). This was brought up with sufficient overlap and then on sheath into place (landing short of the iliac bifurcation which had been marked on the
screen. Next, I completed unsheathing of the ipsilateral limb on the right side and then performed pelvic angiogram with a marker pigtail to measure the length of extension that would be needed. I then brought my right sided iliac limb extension
into place ([id number]). This was then loaded over the wire with sufficient overlap and then was on sheath. Again note was taken of the iliac bifurcation and the distal aspect of the stent graft was short of that. At this point I was very
satisfied. I then used a Coda balloon to balloon mold proximal and distal overlap sites and distal seal zones. Power injection completion angiogram now demonstrated excellent result proximally with good filling of bilateral renal artery stents and
the SMA. (SMA scallop lined up nicely). There was good filling throughout the stent graft into the bilateral iliac limbs with no evidence of endoleak. Imaging of the pelvis demonstrated initially what appeared to be patent hypogastric but on
repeat imaging I am not sure that there was great filling beyond the origin of the left hypogastric. I felt that there was not much else to do for that at this point. There is good filling of the right internal iliac artery. Therefore at this
point is very satisfied. There is good filling otherwise throughout and no evidence of endoleak's. I exchanged my pigtail catheter back for a Lunderquist wire.
Next, I sequentially removed the sheath while cinching down the percutaneous sutures. This was initially done on the right side and then on the left. Once hemostasis was noted the wire was then withdrawn, the knot was tightened with a knot pusher.
Hemostasis was confirmed. The knot was then locked and the suture strands trimmed. This was done as noted on the right initially and then on the left. Hemostasis was fully achieved bilateral groins with good femoral pulses bilaterally. The
small skin incisions were then closed with 4-0 Monocryl subcuticular stitch and Dermabond was applied. Patient tolerated procedure well. He had palpable DP pulses bilaterally upon completion.
--- NOTE | 2023-10-09 13:45 | PTCARENOTE ---
Good appetite for lunch. Pt voided 100 mls of yellow urine. Ambulated 1 loop around the ICU with a walker and tolerated well. Admits to the back pain and abd fullness. No nausea. Very talkative. Wants to wait until he gets home to do his pain med
routine. Groin sites and pulses unchanged.
--- NOTE | 2023-10-09 14:56 | W.DS.TRANS ---
DC Summary - [employer]
-
Discharge Instructions:
Discharge Diagnosis/Procedures Endovascular repair of abdominal aortic aneurysm
with FENESTRATED proximal aortic endoprosthesis
Diet As tolerated,Diabetic, Carb Controlled
Activity No strenuous activity
Driving Restrictions No driving for 1 week
Bathing Restrictions OK to Shower
Instructions:
Stand-Alone Forms: DC Instr - Vascular OR
Changes to Home Medications: Yes
Discharge Medications:
DC Medications w/original date entered in [employer]
pregabalin 150 mg capsule 150 mg PO BID Pain 09/21/23
tramadol 50 mg tablet 50 mg PO TID Pain 09/21/23
aspirin 81 mg chewable tablet 81 mg PO DAILY Blood Clot Prevention/Tx 09/30/23
metformin 500 mg tablet 500 mg BID Diabetes 09/30/23
rosuvastatin 40 mg tablet 40 mg PO DAILY High Cholesterol 09/30/23
cholecalciferol (vitamin D3) 25 mcg (1,000 unit) capsule (Vitamin D3) 25 mcg PO HS Supplement 10/08/23
clopidogrel 75 mg tablet 75 mg PO DAILY #90 tabs 10/09/23
Home Medication Changes
Held for 48 hours metformin 500 mg tablet 500 mg BID Diabetes 09/30/23
Added: clopidogrel 75 mg tablet 75 mg PO DAILY #90 tabs 10/09/23
Pending Results: No
--- NOTE | 2023-10-09 15:10 | PTCARENOTE ---
Vascular surgery in and pt ok for discharge. Ints dc'd. Sites wnl. Neurovascular checks unchanged. Groin sites unchanged. Discharge instructions reviewed with pt. Verbalized understanding. Belongings from room with pt . Pt discharged via wheelchair
with friend currently
== END 2023-10-09 16:37 | disposition home health service (06) | DRG 269 ==
LOC: ICU 06:00
PROVIDERS: Nurse Practitioner; ADMITTING PHYSICIAN Surgery Vascular Surgery; FAMILY PHYSICIAN Family Medicine; OTHER PHYSICIAN Internal Medicine Critical Care Medicine
PROC: 04V03EZ Restriction of Abdominal Aorta with Branched or Fenestrated Intraluminal Device, One or Two Arteries, Percutaneous Approach (ICD-10-PCS; 2023-10-08)
DX: I71.43 Infrarenal abdominal aortic aneurysm, without rupture (principal); E87.1 Hypo-osmolality and hyponatremia; I25.10 Atherosclerotic heart disease of native coronary artery without angina pectoris; E78.5 Hyperlipidemia, unspecified; E11.42 Type 2 diabetes mellitus with diabetic polyneuropathy; I45.10 Unspecified right bundle-branch block; E87.5 Hyperkalemia; J43.8 Other emphysema; I25.2 Old myocardial infarction; Z87.891 Personal history of nicotine dependence; Z95.5 Presence of coronary angioplasty implant and graft
CPT/HCPCS: 34709; 34846; 36415; 71046; 80048; 82962; 83735; 84100; 85025; 85027; 85610; 85730; 86850; 86900; 86901; 87070; 93005; C1725; C1760; C1769; C1874; C1887; C1892; C1894; C2623; Q9967

== ENCOUNTER 2023-10-12 03:20 | Inpatient (IN) | payer OTHER, SELFPAY ==
[2023-10-11 21:50] VITALS: BP 108/52; BMI 37.5
[2023-10-11 22:00] VITALS: BP 113/66
[2023-10-11 22:06] LABS: Hematocrit 31.9 % (39.0-52.0); Hemoglobin 10.9 g/dL (13.0-18.0); Mean Corp Hgb Conc. 34.2 g/dL (33.0-37.0); Mean Corpuscular Hgb 29.5 pg (27.0-31.0); Mean Corpuscular Volume 86.2 fL (80.0-94.0); Mean Platelet Volume 10.9 fL (7.4-10.4); Platelet Count 311 10^3/uL (130-400); Red Cell Dist. Width 15.1 % (11.5-14.5); White Blood Cell Count 31.7 10^3/uL (4.8-10.8)
--- NOTE | 2023-10-11 22:12 | ED.GENMED ---
History of Present Illness
General
Chief Complaint: Rectal Bleeding
Source: patient
Exam Limitations: none
Time Seen by Provider: 10/11/23 21:52
History of Present Illness
History of Present Illness:
This is a 68 year old male that comes in with c/o rectal bleeding. Staes that he started this morning with black stool. States that it was like diarrhea at that time. States that he has right sided abd pain and when he starts with pain he has had a
BM. States that he is nauseated, has vomited, has a headache and dizziness. States that he has some urinary burning as they just took out his catheter. States that he is very weak. Denies any fever, chills, chest pain, SOB.
Past History
Past History
ED Past Medical History: Cancer (Melanoma), Hypercholesterolemia, NIDDM, [place], Psychiatric (Anxiety, Depression) and Other (Back pain, Numbness arms and legs. )
ED Past Surgical History: Cardiac (Stent, Cardiac arrest), Orthopedic (Right femur pins, Knee surgery), Tonsilectomy and Other (AAA repair)
Social History
Tobacco: Former smoker
Alcohol: None
Personal: Single
Living: with family
Family History
Family History: Negative Early CAD
Review of Systems
Review of Systems
All Other Systems: ROS reviewed and negative except as documented in HPI and ROS
Constitutional: Reports no symptoms; Denies fever or chills
EENT: Reports no symptoms
Respiratory: Reports no symptoms; Denies cough or trouble breathing
Cardiac: Reports no symptoms; Denies chest pain
ABD/GI: Reports abdominal pain, nausea, vomiting, diarrhea and black stools
: Reports dysuria; Denies frequency or urgency
Musculoskeletal: Reports no symptoms
Skin: Reports no symptoms
Neurological: Reports dizzy and headache
Psychiatric: Reports no symptoms
Phy Exam
General Physical Exam
General Presentation: mild distress
General age: appears stated age
General Skin: warm, dry and pale
General Habitus: normal
General Mental: alert
General Hydration: appears well hydrated
ENT Exam
ENT Exam: TM's normal, pharynx normal and neck supple
Eye Exam
Eye Exam: EOMI
Cardiovascular Exam
Cardiovascular Exam: no edema, normal peripheral pulses and tachycardia
Pulmonary Exam
Pulmonary Exam: lungs clear, no respiratory distress, no rales, chest non tender, no crackles, no rhonchi, no wheezing and no cough
Gastrointestinal Exam
Gastrointestinal Exam: normal bowel sounds, soft, no organomegaly, no pulsatile mass, non distended, tender (Right sided abd tenderness with palpation) and other (Stool back hem positive, )
Musculoskeletal Exam
Musculoskeletal Exam: full ROM and no edema
Skin Exam
Skin Exam: warm/dry, no rash, no petechia, pallor and other (bilateral inguinal incision clean and dry. )
Psychiatric Exam
Psychiatric Exam: normal mood/affect
Course
Orders/Labs/Results
Orders:
Orders
10/11/23 21:57
Cardiac Monitoring- Treatment ONCE
IV Insert/Care/Rem.- Treatment PRN
O2 Therapy [RESP] Urgent
Titrate/Wean O2 to maintain O2 sat greater than (%): 93
Special Instructions: MAINTAIN CONTINOUS O2 SATS > OR = 93%
Pulse Ox/spot Check [RESP] Urgent
Quantity: 1
Special Instructions: ON ROOM AIR
10/11/23 21:58
Type+Screen Urgent
Complete Blood Count/With Diff Urgent
Comprehensive Metabolic Panel Urgent
PTT Urgent
Prothrombin Time Urgent
10/11/23 22:10
CT Abd/Pel (IV only)-DH only Urgent
Comment:
Reason For Exam: Black stool. AAA repair. Right sided pain/back
Pantoprazole 80 mg/100 ml Nss [Protonix] 80 mg in 100 ml IV NOW
Pantoprazole [Protonix IV] 80 mg IV NOW STA
10/11/23 22:11
Urinalysis Reflex To Culture Urgent
10/11/23 22:13
Ondansetron Injectable [Zofran] 4 mg IV NOW STA
10/11/23 22:26
Acetaminophen 1000MG/100Ml [Ofirmev] 1,000 mg in 100 ml IV ONCE
Acetaminophen IV Indication:: ED Narcotic Naive Pt-ONCE
Abnormal Lab Results
10/11/23
21:58
WBC 31.7 H 10^3/uL
(4.8-10.8)
RBC 3.70 L 10^6/uL
(4.70-6.10)
Hgb 10.9 L g/dL
(13.0-18.0)
Hct 31.9 L %
(39.0-52.0)
RDW 15.1 H %
(11.5-14.5)
MPV 10.9 H fL
(7.4-10.4)
Abs Immat Gran (auto) 1.0 H 10^3/uL
(0-0.05)
Absolute Neuts (auto) 26.1 H 10^3/uL
(1.4-6.5)
Absolute Monos (auto) 2.5 H 10^3/uL
(0.1-0.6)
Immature Gran % 3.1 H %
(0-0.5)
Neutrophils % 82.3 H %
(42.2-75.2)
Lymphocytes % 6.2 L %
(20.5-51.1)
PT 16.3 H Sec
(11.4-14.6)
Chloride 108 H mmol/L
(98-107)
Carbon Dioxide 21 L mmol/L
(22-30)
BUN 65 H mg/dl
(9-20)
Glucose 255 H mg/dl
(70-99)
Total Protein 5.7 L g/dl
(6.3-8.2)
Albumin 3.3 L g/dl
(3.5-5.0)
10/11/23 21:58
10/11/23 21:58
Leukocytosis, H/h low. PT 16.3 with INR 1.33, PTT 30.7, dehydration (possible elevation due to bleeding), glucose nonfasting. Total protein low. Albumin slightly low.
Vital Signs
Initial and Last Documented VS:
Initial Vital Signs
Temp Pulse Resp BP Pulse Ox
98.1 F 99 20 108/52 97
10/11/23 21:50 10/11/23 21:50 10/11/23 21:50 10/11/23 21:50 10/11/23 21:50
Last Documented Vital Signs
Temp Pulse Resp BP Pulse Ox
98.1 F 106 14 121/64 98
10/11/23 21:50 10/12/23 00:08 10/12/23 00:08 10/12/23 00:08 10/12/23 00:08
MDM/Problems Addressed
Differential Diagnosis Includes:
Upper GI bleeding, surgical leak,
MDM/Problems Addressed:
This is a 68 year old male that comes in with c/o rectal bleeding. States that he started with black stool this morning and has gone multiple times since. states that he is very weak.
Will get labs, start IV Protonix and CT scan of abd. Will medicate for nausea and pain. Blood consent signed. Will admit patient.
Back into see patient. Patient is sleeping. Explained to family that he would be admitted. Hospitalist notified.
Chronic conditions affecting care: DM and Previous abdomnial surgery
Acute Exacerbation and/or Progression of Chronic Illness: Previous abdomnial surgery
*Radiology
Radiology exam reviewed: radiology read reviewed (CT night hawk- Interval placement of endovascular stent within the abdominal aortic aneurysm. The aneurysm is similar in size measuring up to 4.8cm. There is a small amount of gas within the aneurysm
which is presumably postoperative in nature. Mild stranding around the aorta and bilateral common ), all reviewed NAD by ED Provider (CT cont-iliac arteries, also presumably postoperative. No sarabjit perivascular hemorrhage. Additional patent
bilateral renal artery stents. Fluid within the small bowel and colon, nonspecific however can be seen with enteritis, malabsorption or medications. No obvious active bleeding identified) and other (CT cont-however this is not a dedicated bleeding
study. If indicated could perform a nuclear medicine exam. Additional findings: nonobstructing stones in the left kidney. Moderate umbilical hernia containing fat. Focus of gas in the bladder, could be iatrogenic. Chronic L1 compression fracture. )
*Pulse Oximetry
Patient hypoxic: no
*Dental Equipment Mechanic Interpretation
Rate: tachycardiac
Heart Rate: 106
Rhythm: sinus tachycardia
*Critical Care Note
Total Time (30-74mins, 75-104mins- exclusive of procedures): Not Applicable
ED Attending Note
-
Portions of this chart may have been created with voice recognition software.� Occasional wrong word or��sound alike� substitutions may have occurred due to the inherent limitations of voice recognition software.
Discharge Plan
Departure
Patient Disposition: Admit
Date of Disposition: 10/12/23
Time of Disposition: 00:49
Admit to: Telemetry
Presentation/result/management discussed w/ accepting MD/DO: Hospitalist
Patient with high blood pressure during this ER visit?: No
Condition: Good
Covid-19: Not Applicable
Discharge Problem:
Acute upper GI bleeding
Prescriptions:
No Action
tramadol 50 mg Tablet
50 mg PO TID
pregabalin 150 mg Capsule
150 mg PO BID
cholecalciferol (vitamin D3) [Vitamin D3] 25 mcg (1,000 unit) Capsule
25 mcg PO HS
clopidogrel 75 mg Tablet
75 mg PO DAILY Qty: 90 0RF
aspirin 81 mg Tablet,Chewable
81 mg PO DAILY
rosuvastatin 40 mg Tablet
40 mg PO DAILY
metformin 500 mg Tablet
500 mg PO BID
Referrals:
Rose Marie John MD [Family Provider] -
Interventions
Interventions:
*Risk Screen - Suicide Last Done: 10/11/23 21:50
*General Assessment Last Done: 10/11/23 21:50
*Neglect/Abuse Screening Last Done: 10/11/23 21:50
ED- Fall Risk Assessment Last Done: 10/11/23 22:47
*ED COVID-19 Vaccine History Last Done: 10/11/23 21:50
QL-Bafxsj-Xnfoedlssz Assessment Last Done: 10/11/23 22:48
ED- Cardiac Assessment Last Done: 10/11/23 22:48
ED- Pulmonary Assessment Last Done: 10/11/23 22:48
Discharge Date and Time
Print Language: ITALIAN
[2023-10-11 22:16] LABS: APTT 30.7 Sec (23.4-35.0); INR 1.33; PT 16.3 Sec (11.4-14.6)
[2023-10-11 22:22] LABS: % Basophils 0.4 % (0-2); % Eosinophils 0.1 % (0-6); % Immature Granulocytes 3.1 % (0-0.5); % Lymphocytes 6.2 % (20.5-51.1); % Monocytes 7.9 % (1.7-9.3); % Neutrophils 82.3 % (42.2-75.2); Absolute Basophils 0.1 10^3/uL (0-0.2); Absolute Monocytes 2.5 10^3/uL (0.1-0.6); Absolute Neutrophils 26.1 10^3/uL (1.4-6.5); Nucleated Red Blood Cells % 0 % (-)
[2023-10-11 22:28] LABS: ALT (SGPT) 25 U/L (0-50); AST (SGOT) 19 U/L (17-59); Albumin 3.3 g/dl (3.5-5.0); Alkaline Phosphatase 74 U/L (38-126); Blood Urea Nitrogen 65 mg/dl (9-20); Calcium 8.8 mg/dl (8.4-10.2); Carbon Dioxide 21 mmol/L (22-30); Chloride 108 mmol/L (98-107); Estimated Creatinine Clearance 84 ml/min; Glucose 255 mg/dl (70-99); Potassium 3.9 mmol/L (3.5-5.1); Sodium 138 mmol/L (135-145); Total Bilirubin 0.7 mg/dl (0.2-1.3); Total Protein 5.7 g/dl (6.3-8.2); eGFR > 60.00
[2023-10-11] MEDS: ZOFRAN 4 MG IV (22:37)
[2023-10-11] MEDS: PROTONIX IV 80 MG IV (22:38)
[2023-10-11] MEDS: OFIRMEV 100 IV (22:42)
[2023-10-11 23:06] VITALS: BP 124/72
[2023-10-11] MEDS: PROTONIX 100 IV (23:09)
[2023-10-12] VITALS (21 sets, daily range): BP systolic 94–145; BP diastolic 48–101; BMI 37.5
--- NOTE | 2023-10-12 03:05 | HPS.HSE ---
Family Physician
-
Family Physician: Rose Marie John MD
Chief Complaint
-
GI bleed
History of Present Illness
Patient is a 68y M with PMH significant for ASCVD and recent AAA repair who presents to ED complaining of N/V and black stools. Patient was recently admitted to and underwent AAA endovascular repair on 10/07. He states that he was feeling well
at the time of discharge. Patient was on ASA prior to this admission and was started on Plavix in addition after the surgery.
Patient notes that he developed nausea and emesis shortly after his return home. He was unable to tolerate an meaningful PO intake. He reports about 3-4 episodes of emesis per day.
He felt lightheaded and fatigued. He notes that he was incontinent of bowel and bladder and reports that his stool was loose and very black.
He denies any BRB in the stool or in the emesis.
Patient presented to the ED for further evaluation and treatment.
He has not had any further emesis since arrival.
Medical History
Past Medical History
Past Medical History: Reports Other
Additional Past Medical History:
ASCVD
AAA
DM-II
Migraine Headaches
Anxiety / Depression
Past Surgical History: Reports Other
Additional Past Surgical History:
Right Femur ORIF
Bilateral Knee Arthroscopies
PTCA with Stent x 2
Endovascular AAA Repair, Bilateral Renal Artery Stents (10/08/23)
T&A
Social History
Tobacco: Former Smoker (Quit smoking in August. > 40 pack years total use.)
Alcohol: Occasional
Drug: None
Family History
Family History: Not pertinent
Allergies / Home Medications
Allergies reflects when Allergies were last updated in [employer].
Home Medications with original date entered in [employer]
Allergy/Medication List:
Allergies
Allergy/AdvReac Type Severity Reaction Status Date / Time
No Known Allergies Allergy Verified 10/11/23 21:58
Home Medications
pregabalin 150 mg capsule 150 mg PO BID Pain 09/21/23
tramadol 50 mg tablet 50 mg PO TID Pain 09/21/23
aspirin 81 mg chewable tablet 81 mg PO DAILY Blood Clot Prevention/Tx 09/30/23
rosuvastatin 40 mg tablet 40 mg PO DAILY High Cholesterol 09/30/23
cholecalciferol (vitamin D3) 25 mcg (1,000 unit) capsule (Vitamin D3) 25 mcg PO HS Supplement 10/08/23
clopidogrel 75 mg tablet 75 mg PO DAILY #90 tabs 10/09/23
metformin 500 mg tablet 500 mg PO BID 10/11/23
Review of Systems
-
History Source: Patient
A 12 point ROS was completed and negative except as noted: Yes
Constitutional: Denies Fever or Chills
Respiratory: Denies Cough or Trouble Breathing
Cardiac: Denies Chest Pain or Palpitations
Abdomen/GI: Reports Nausea, Vomiting, Diarrhea and Black Stools; Denies Abdominal Pain
: Denies Dysuria, Frequency or Flank Pain
Neurological: Denies Dizzy or Headache
Psych: Denies Depression or Anxiety
Physical Exam
Vital Signs
Vital Signs
Temp Pulse Resp BP Pulse Ox
98.1 F 101 19 132/68 94
10/11/23 21:50 10/12/23 02:00 10/12/23 02:00 10/12/23 02:00 10/12/23 01:00
Physical Exam
General: Other (68y M in no acute distress.)
HEENT: Other (Dry MM. )
Respiratory: Clear; No Wheezes, Rales or Rhonchi
Cardiac: S1/S2 and Tachycardia; No Murmur
GI: Other (Obese, no focal tenderness. Pos BS.)
Musculoskeletal: No Clubbing, No Cyanosis and No Edema
Neuro: AO x 3
Laboratory Results
-
10/11/23 21:58
10/11/23 21:58
Laboratory Results
PT 16.3 Sec (11.4-14.6) H 10/11/23:58
INR 1.33 10/11/23 21:58
APTT 30.7 Sec (23.4-35.0) 10/11/23 21:58
Total Bilirubin 0.7 mg/dl (0.2-1.3) 10/11/23 21:58
AST 19 U/L (17-59) 10/11/23:58
ALT 25 U/L (0-50) 10/11/23:58
Alkaline Phosphatase 74 U/L (38-126) 10/11/23:58
Impression/Plan
-
A/P: Patient is a 68y M with PMH significant for ASCVD, DM-II and recent AAA repair who presents to ED complaining of N/V and black stools.
Acute Upper GI Bleed
Acute Blood Loss Anemia secondary to the above
- Admit to IMU for further evaluation and treatment.
- Likely upper GI source given newly added Plavix, BUN elevation, melena, etc.
- Hold ASA and Plavix acutely - resume ASA as soon as possible.
- IV PPI infusion for now.
- IVF support.
- GI evaluation / probable endoscopic examination.
- Follow for further N/V or gross blood loss.
- Follow H&H and transfuse if needed - note 2g blood loss since discharge.
Leukocytosis
- Significant leukocytosis - ? secondary to blood loss / marrow response / etc?
- CT done in the ED this evening with no obvious evidence for acute infectious process.
- Observe off of abx and follow for fever or other new symptoms / complaints.
- Follow for changes in cell counts.
- Monitor H&H and transfuse if needed.
AAA s/p Repair
- Endovascular repair completed on 10/[address] Servin.
- Holding DAPT acutely as noted above given significant bleeding event.
- Resume as soon as able.
- CT done as noted with no evidence of acute abnormality involving AAA graft, renal stents, etc.
- Vascular Surgery notified of admission.
ASCVD
- Stable. Prior coronary stenting x 2.
- Holding ASA as noted above - resume once acute bleeding issue is addressed / resolved.
DM-II
- Stable. Holding PO med acutely.
- Follow glucose and cover with SSI as needed.
- Update A1C.
DVT Prophylaxis: SCDs
Code Status: Full
--- NOTE | 2023-10-12 03:56 | EDRN ---
Report called to Saman in ICU - pt is IMU admission going to ICU
--- NOTE | 2023-10-12 04:30 | PTCARENOTE ---
Received pt from ED RN via bed tsx. Pt on protonix gtt infusing via left arm peripheral IV site. Pt is A&Ox3, can make needs known, and move all 4 extremities. Pt denies pain at this time. Pt is ST on tele monitor, has trace GA, and palpable pedal
pulses. Pt on RA satting at 96% pulse ox. On auscultation pt lungs sound diminished TO. Pt NPO per order. Pt's abdomen is round, obese, and has active BS. 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
[2023-10-12] MEDS: PROTONIX 100 IV ×3 (04:44→20:30)
[2023-10-12 04:48] LABS: Hematocrit 30.6 % (39.0-52.0); Hemoglobin 10.3 g/dL (13.0-18.0)
[2023-10-12] MEDS: LR 1000 IV ×2 (04:56→17:15)
[2023-10-12 05:12] LABS: Blood Urea Nitrogen 72 mg/dl (9-20); Calcium 8.6 mg/dl (8.4-10.2); Carbon Dioxide 22 mmol/L (22-30); Chloride 110 mmol/L (98-107); Estimated Creatinine Clearance 92 ml/min; Glucose 173 mg/dl (70-99); Potassium 4.1 mmol/L (3.5-5.1); Sodium 139 mmol/L (135-145); eGFR > 60.00
[2023-10-12 05:22] LABS: Troponin I < 0.012 ng/ml
--- NOTE | 2023-10-12 05:50 | PTCARENOTE ---
PRN zofran administered by this RN for nausea.
--- NOTE | 2023-10-12 06:56 | CON.GI ---
Addendum entered and electronically signed by Smitha Hercules MD 10/12/23 13:47:
I saw and examined the patient.
The SOLDERER DIPPER's note was reviewed and I agree with the note.
Comment: This is a 68-year-old male with past medical history of CAD status post stent, diabetes, anxiety, depression had recent endovascular repair of AAA FEVAR on 10/07 and renal artery stent placement as part of FEVAR and was discharged home on
dual antiplatelet therapy with aspirin and Plavix (he was already on aspirin and was started on Plavix post op) he now presents with nausea, vomiting, coffee-ground emesis and melena with acute drop in hemoglobin from 13.3 on 10/08 to 9.8 on 10/11 and
he had a CT and was ruled out for postop complications and no hematoma or retroperitoneal bleed noted.
Assessment and plan acute blood loss anemia with melena since he was started on Plavix after FEVAR 10/07 and renal artery stent on 10/08/2023 along with ASA(was on ASA as OP). Most likely etiology is peptic ulcer disease on DAPT. He has been started
on Protonix drip, Plavix and ASA are held for now. will schedule him for urgent endoscopy. Will also need to rule out possible angioectasias although I think this is less likely. He denies any use of NSAIDs. Monitor HB.
Addendum entered and electronically signed by TEAGAN Mccauley 10/12/23 09:41:
await final reading of CT-- reviewed vascular notes plan for EGD today
Original Note:
Consultation
-
Date/Time Consultation Requested: 10/12/230
Date/Time Consultation Performed: 10/12/23 0730
Requesting Provider: Manny Dejesus DO
Performing Provider: TEAGAN Stacy, Smitha Hercules MD
Reason for Consultation: GI bleed
Medical History
Chief Complaint / HPI
Chief Complaint: black stools
History of Present Illness:
Pt is a 68yo with hx ASCVD, DM, PTCA and prior stent, anxiety/depression with recent endovascular repair of AAA on 10/07 with newly started Plavix. He developed nausea and vomiting some dark emesis after discharge with decreased oral intakes. He
also reported fatigue and lightheadedness with passage of black stool after first dose of Plavix and noted on admission with concern for upper GI bleed. Pt hbg 13.3 on 10/08 then drop to 10.9 on return with noted tachycardia and WBC up to 31,[address] completed overnight and seen by vascular surgery with stable endovascular repair and per nighthawk no obvious active bleeding noted.
Pt denies NSAID use prior to admission other than ASA 81mg. No prior EGD/colonoscopy. He admits to hx constipation and mild abdominal pain but denies dysphagia, GERD, or red stools. + wt loss over time with start of Metformin.
Past Medical History
Past Medical History: NIDDM, Psychiatric (anxiety/depression) and Other (ASCVD, migraines)
Past Surgical History: Cardiac (PTCA stent ), Orthopedic (femur ORIF, knee arthroplasty) and Other (AAA endovascular repair)
Social History
Tobacco: Former Smoker
Alcohol: None
Drug: Marijuana
Living: Alone
Employment: Employed
Family History
Family History: Other (no family hx colon CA or GI problems)
Allergies / Home Medications
Allergy/AdvReac Type Severity Reaction Status Date / Time
No Known Allergies Allergy Verified 10/11/23 21:58
�Medication �Instructions �Recorded
pregabalin 150 mg capsule 150 mg PO BID Pain 09/21/23
tramadol 50 mg tablet 50 mg PO TID Pain 09/21/23
aspirin 81 mg chewable tablet 81 mg PO DAILY Blood Clot 09/30/23
Prevention/Tx
rosuvastatin 40 mg tablet 40 mg PO DAILY High Cholesterol 09/30/23
cholecalciferol (vitamin D3) 25 25 mcg PO HS Supplement 10/08/23
mcg (1,000 unit) capsule (Vitamin
D3)
clopidogrel 75 mg tablet 75 mg PO DAILY #90 tabs 10/09/23
metformin 500 mg tablet 500 mg PO BID 10/11/23
Review of Systems
-
History Source: Patient
Constitutional: Reports Weight Loss and Chills
EENT: Reports No Symptoms
Respiratory: Reports No Symptoms
Abdomen/GI: Reports Abdominal Pain, Nausea, Vomiting, Diarrhea, Constipated and Black Stools
: Reports No Symptoms
Musculoskeletal: Reports No Symptoms
Skin: Reports No Symptoms
Neurological: Reports Dizzy and Weakness
Endocrine: Reports No Symptoms
Hematologic/Lymphatic: Reports Bleeding
Vital Signs
Temp Pulse Resp BP Pulse Ox
98.9 F 105 17 133/77 94
10/12/23 04:59 10/12/23 05:00 10/12/23 05:00 10/12/23 04:45 10/12/23 01:00
Physical Exam
Exam
General: Other (pale appearing with continued nausea )
HEENT: Normocephalic and Anicteric
Respiratory: Clear
Cardiac: Other (tachy)
GI: Soft, Non Distended and Tender (minimal )
Rectal: Hem Positive (black in ER)
Musculoskeletal: No Clubbing and No Cyanosis
Skin: Warm and Dry
Neuro: Awake, Alert and AO x 3
Psych: Calm
Results
WBC 31.7 10^3/uL (4.8-10.8) H 10/11/23 21:58
Hgb 10.3 g/dL (13.0-18.0) L 10/12/23 04:31
Hct 30.6 % (39.0-52.0) L 10/12/23 04:31
MCV 86.2 fL (80.0-94.0) 10/11/23 21:58
Plt Count 311 10^3/uL (130-400) D 10/11/23 21:58
Absolute Neuts (auto) 26.1 10^3/uL (1.4-6.5) H 10/11/23 21:58
PT 16.3 Sec (11.4-14.6) H 10/11/23 21:58
INR 1.33 10/11/23 21:58
APTT 30.7 Sec (23.4-35.0) 10/11/23 21:58
Sodium 139 mmol/L (135-145) 10/12/23 04:31
Potassium 4.1 mmol/L (3.5-5.1) 10/12/23 04:31
Chloride 110 mmol/L (98-107) H 10/12/23 04:31
Carbon Dioxide 22 mmol/L (22-30) 10/12/23 04:31
BUN 72 mg/dl (9-20) H 10/12/23 04:31
Creatinine 0.9 mg/dL (0.7-1.3) 10/12/23 04:31
Calcium 8.6 mg/dl (8.4-10.2) 10/12/23 04:31
Total Bilirubin 0.7 mg/dl (0.2-1.3) 10/11/23 21:58
AST 19 U/L (17-59) 10/11/23 21:58
ALT 25 U/L (0-50) 10/11/23 21:58
Alkaline Phosphatase 74 U/L (38-126) 10/11/23 21:58
Diagnostic Image Results:
CT per ER report night hawk- Interval placement of endovascular stent within the abdominal aortic aneurysm. The aneurysm is similar in size measuring up to 4.8cm. There is a small amount of gas within the aneurysm which is presumably postoperative
in nature. Mild stranding around the aorta and bilateral common ), all reviewed NAD by ED Provider (CT cont-iliac arteries, also presumably postoperative. No sarabjit perivascular hemorrhage. Additional patent bilateral renal artery stents. Fluid
within the small bowel and colon, nonspecific however can be seen with enteritis, malabsorption or medications. No obvious active bleeding identified) and other (CT cont-however this is not a dedicated bleeding study. If indicated could perform a
nuclear medicine exam. Additional findings: nonobstructing stones in the left kidney. Moderate umbilical hernia containing fat. Focus of gas in the bladder, could be iatrogenic. Chronic L1 compression fracture.
Prior GI Procedures:
EGD: none
Colonoscopy: none
Assessment / Plan
-
Pt is a 68yo with hx ASCVD, DM, PTCA and prior stent, anxiety/depression with recent endovascular repair of AAA on 10/07 with newly started Plavix. He developed nausea and vomiting after discharge with decreased oral intakes. He also reported
fatigue and lightheadedness with passage of black stool and noted on admission with concern for upper GI bleed. Pt hbg 13.3 on 10/08 then drop to 10.9 on return with noted tachycardia and WBC up to 31,[address] completed overnight and
seen by vascular surgery with stable endovascular repair and per nighthawk no obvious active bleeding noted.
-melena
-anemia
-leukocytosis
-tachycardia
-endovascular AAA repair - FEVAR with placement of renal artery stent with addition of Plavix
other medical problems:
-ASCVD
-DM
-PTCA with prior stent
-anxiety depression
PLAN:
Etiology of melena with concern for Upper GI bleeding PUD, ectasia, mass vs other
appreciate vascular input - stent appears well positioned with b/l renal artery stent patent
await final read of CT
will review timing for EGD with Dr. Hercules
NPO
PPI gtt
trend hbg transfuse <8
Plavix hold last dose 10/10
-
-
Thank you for consultation and allowing me to participate in the patient's care. Please call the revenue liaison GI physician during the after hours with any questions or concerns.
--- NOTE | 2023-10-12 07:37 | W.PN.UPDATE ---
Update Note
Progress Note Update
Seen and evaluated/examined. Known well to me status post FEVAR last week. Uncomplicated postoperative course. Was tolerating diet and looked well discharged home postoperative day #1. Now patient returns with concern for GI bleed. Patient
notes that when at home he had some nausea and 1 or 2 episodes of emesis. Then subsequently had large bloody/black bowel movement. Prompted him to come right back here. Note patient was started on dual antiplatelet therapy following renal artery
stent placements as part of FEVAR.
Not complaining of any abdominal pain. No real postprandial pain.
On exam/ He is awake and alert. No acute distress. Breathing is unlabored. Abdomen is soft, nondistended, nontender. Groin small incisions clean dry and intact bilaterally. No hematomas. Feet warm with palpable DP pulses bilaterally.
CT scan reviewed. Stent graft appears well-positioned. Bilateral renal artery stents patent. SMA fenestration appears patent with good flow into the SMA. Celiac artery patent.
Plan/GI bleed. Agree with GI workup/endoscopy as needed. Agree with PPI. Okay to hold antiplatelet therapy as needed, albeit with slightly increased risk of potential stent thrombosis.
[2023-10-12 09:59] LABS: Glucose - Point of Care 181 mg/dl (70-99)
[2023-10-12] MEDS: NOVOLOG FLEXPEN-LOW RESISTANCE 1 UNITS SC (10:00)
[2023-10-12] MEDS: ZOFRAN 4 MG IV ×2 (10:08→23:52)
[2023-10-12 10:11] LABS: Hematocrit 28.7 % (39.0-52.0); Hemoglobin 9.8 g/dL (13.0-18.0)
[2023-10-12 10:27] LABS: Troponin I < 0.012 ng/ml
--- NOTE | 2023-10-12 10:38 | PTCARENOTE ---
Pt received from shift nurse manager RN. Ox3 and appropriate. Not complaining of any lightheadedness or pain. Sinus tach on tele, + pulses. 97% on RA, breath sounds clear. Obese, round ABD. Pt incontinent at times of both urine and stool. Bruising at BL
groin sites from recent vascular intervention. Pt severely deconditioned with very little strength in his legs.. Pt cleaned, turned, now resting comfortably. Call gruber within reach.
[2023-10-12 10:43] LABS: Urine Albumin Trace (Neg - Trace); Urine Bilirubin Negative (Negative); Urine Character Clear (Clear); Urine Color Yellow; Urine Glucose Negative (Negative); Urine Ketone Negative (Negative); Urine Leukocyte Negative (Negative); Urine Nitrite Negative (Negative); Urine Occult Blood Trace (Negative); Urine Specific Gravity 1.015 (<1.030); Urine Urobilinogen Negative (Neg - 1+)
[2023-10-12 10:44] LABS: Glycohemoglobin (HgbA1c) 6.6 % (4.0-5.6)
--- NOTE | 2023-10-12 11:46 | CM ---
CM following re: discharge planning.
Reviewed pt's chart, met with pt.
Pt is a 68 year old male, admitted with primary dx of GI Bleed.
Pt is well known to this CM from previous admission and was discharged home 2 days ago. Pt reports he lives alone on the second floor apartment on a top of his garage. Pt reports he has a dog. Pt reports his ex- cannot help him and daughter is
estranged from him due to her substance abuse problems. Pt reports he ambulates with a walker at baseline, has a cane. pt stated he will need some help at home. Pt referred to [facility] last admission 22 days ago and [facility] will resume [facility] services upon
the discharge.
Pt stated his neighbor is taking care of his dog while pt is in the hospital.
Also, pt stated he had Medicaid before and it was cut off due to his income. Pt stated he will re-apply for Medicaid and community based services. Pt is aware that [facility] social worked will help to enroll him for community based services.
PCP: Rose Marie John
Pharmacy: [facility]
D/C plan: home with [facility] and to follow up with [facility] for community based services.
CM will follow with discharge plan updates as hospitalization progresses
[2023-10-12 11:47] LABS: Urine Amorphous Seen; Urine Mucus Many
--- NOTE | 2023-10-12 12:52 | VNURNOTE ---
Chart reviewed. Referral was placed for [facility] last admission, however, patient was re-admitted prior to starting services. New referral placed in [facility], will continue to follow hospital course.
[2023-10-12] MEDS: NOVOLOG FLEXPEN-LOW RESISTANCE SC (13:00)
[2023-10-12 13:36] LABS: Glucose - Point of Care 177 mg/dl (70-99)
--- NOTE | 2023-10-12 14:27 | W.PN.HOSP.TC ---
Today's Communication/Plan
-
PPI ggt
Resume ASA tomorrow
CLD
MOnitor CBC
Assessment / Plan
Assessment / Plan
Physical Exam
General: Other (68y M in no acute distress.)
HEENT: Other (Dry MM. )
Respiratory: Clear; No Wheezes, Rales or Rhonchi
Cardiac: S1/S2 and Tachycardia; No Murmur
GI: Other (Obese, no focal tenderness. Pos BS.)
Musculoskeletal: No Clubbing, No Cyanosis and No Edema
Neuro: AO x 3
A/P: Patient is a 68y M with PMH significant for ASCVD, DM-II and recent AAA repair who presents to ED complaining of N/V and black stools.
Acute Upper GI Bleed
Acute Blood Loss Anemia secondary to the above
- EGD today: LA Grade B reflux esophagitis with no bleeding. Small hiatal hernia. Non-bleeding duodenal ulcers with no stigmata of bleeding. Erythematous duodenopathy.
-Continue present medications.
- No ibuprofen, naproxen, or other non-steroidal anti-inflammatory drugs.
- Ok to resume ASA tomorrow given recent stent and if needs DAPT then resume Plavix in 2 days with PPI bid
- monitor Hb
- Continue PPI gtt
- clear liquids today
- Follow H&H and transfuse if needed - note 2g blood loss since discharge.
Leukocytosis
- Significant leukocytosis -most likely reactive
-monitor wbc, fever curve
- CT done in the ED this evening with no obvious evidence for acute infectious process.
- Observe off of abx and follow for fever or other new symptoms / complaints.
- Monitor H&H and transfuse if needed.
AAA s/p Repair
- Endovascular repair completed on 10/[address] Servin.
- Holding DAPT acutely as noted above given significant bleeding event. see plan abovee
- Resume as soon as able.
- CT done as noted with no evidence of acute abnormality involving AAA graft, renal stents, etc.
- Vascular Surgery on board
ASCVD
- Stable. Prior coronary stenting x 2.
- Holding ASA as noted above - resume once acute bleeding issue is addressed / resolved.
DM-II
- Stable. Holding PO med acutely.
- Follow glucose and cover with SSI as needed.
- Update A1C.
DVT Prophylaxis: SCDs
Code Status: Full
Anticipated Discharge: Within 24 hours
Subjective/Interval History
-
Date of Service: October 12, 2023
uncomfortable, nauseous today
Objective Data
-
Labs:
Laboratory Results
10/12/23 10/12/23 10/12/23
04:31 09:46 16:11
Hgb 10.3 L 9.8 L Pending
Hct 30.6 L 28.7 L Pending
Sodium 139
Potassium 4.1
Chloride 110 H
Carbon Dioxide 22
BUN 72 H
Creatinine 0.9
Glucose 173 H
Calcium 8.6
10/12/23
22:11
Hgb Pending
Hct Pending
Sodium
Potassium
Chloride
Carbon Dioxide
BUN
Creatinine
Glucose
Calcium
Vital Signs:
Vital Signs
Temp Pulse Resp BP Pulse Ox
97.7 F 101 14 118/57 96
10/12/23 14:26 10/12/23 14:00 10/12/23 14:00 10/12/23 14:00 10/12/23 14:00
I&O
10/11/23 10/12/23 10/13/23
06:59 06:59 06:59
Output Total 500 / 500
Balance -500 / -500
Review of Systems
-
History Source: Patient
All other systems: Not reviewed unless documented
Data Reviewed
-
CT Scan: Image personally visualized and interpreted and Report Reviewed by me
Labs: Labs Reviewed by me
[2023-10-12 15:42] LABS: Hematocrit 26.9 % (39.0-52.0); Mean Corp Hgb Conc. 33.5 g/dL (33.0-37.0); Mean Corpuscular Hgb 29.6 pg (27.0-31.0); Mean Corpuscular Volume 88.5 fL (80.0-94.0); Mean Platelet Volume 10.9 fL (7.4-10.4); Platelet Count 315 10^3/uL (130-400); Red Blood Cell Count 3.04 10^6/uL (4.70-6.10); Red Cell Dist. Width 15.4 % (11.5-14.5); White Blood Cell Count 22.2 10^3/uL (4.8-10.8)
[2023-10-12 15:51] LABS: Troponin I < 0.012 ng/ml
[2023-10-12] MEDS: NOVOLOG FLEXPEN-LOW RESISTANCE 3 UNITS SC (17:19)
[2023-10-12 17:30] LABS: Glucose - Point of Care 251 mg/dl (70-99)
[2023-10-12 22:38] LABS: Hemoglobin 8.3 g/dL (13.0-18.0)
[2023-10-12] MEDS: TYLENOL 650 MG PO (23:51)
[2023-10-13] VITALS (18 sets, daily range): BP systolic 103–156; BP diastolic 46–99; BMI 38.3
[2023-10-13] MEDS: LR 1000 IV
--- NOTE | 2023-10-13 00:46 | PTCARENOTE ---
Received patient via handoff at bedside. Pt AOx3, lightheaded and slightly nauseas and [place]WAY. NSR with positive pedal pulses. 97% on room air. Urinal in use at bedside. Urine clear yellow. Bilateral bruising at groin puncture sites. Left and Right 20G
AC. Protonix and LR gtts running see flowsheet.
[2023-10-13 05:23] LABS: % Basophils 0.4 % (0-2); % Eosinophils 0.6 % (0-6); % Lymphocytes 17.1 % (20.5-51.1); % Monocytes 9.1 % (1.7-9.3); % Neutrophils 69.8 % (42.2-75.2); Absolute Basophils 0.1 10^3/uL (0-0.2); Absolute Eosinophils 0.1 10^3/uL (0-0.7); Absolute Immature Granulocytes 0.5 10^3/uL (0-0.05); Absolute Lymphocytes 2.9 10^3/uL (1.2-3.4); Absolute Monocytes 1.6 10^3/uL (0.1-0.6); Absolute Neutrophils 11.9 10^3/uL (1.4-6.5); Hemoglobin 7.1 g/dL (13.0-18.0); Mean Corp Hgb Conc. 33.8 g/dL (33.0-37.0); Mean Corpuscular Hgb 29.3 pg (27.0-31.0); Mean Corpuscular Volume 86.8 fL (80.0-94.0); Mean Platelet Volume 10.6 fL (7.4-10.4); Nucleated Red Blood Cells % 0 % (-); Platelet Count 252 10^3/uL (130-400); Red Blood Cell Count 2.42 10^6/uL (4.70-6.10); Red Cell Dist. Width 15.3 % (11.5-14.5); White Blood Cell Count 17.1 10^3/uL (4.8-10.8)
[2023-10-13 05:45] LABS: ALT (SGPT) 17 U/L (0-50); AST (SGOT) 19 U/L (17-59); Albumin 2.3 g/dl (3.5-5.0); Alkaline Phosphatase 52 U/L (38-126); Blood Urea Nitrogen 28 mg/dl (9-20); Calcium 7.6 mg/dl (8.4-10.2); Carbon Dioxide 25 mmol/L (22-30); Chloride 112 mmol/L (98-107); Estimated Creatinine Clearance 119 ml/min; Glucose 118 mg/dl (70-99); Potassium 3.3 mmol/L (3.5-5.1); Sodium 137 mmol/L (135-145); Total Bilirubin 0.5 mg/dl (0.2-1.3); Total Protein 4.5 g/dl (6.3-8.2); eGFR > 60.00
--- NOTE | 2023-10-13 06:16 | PTCARENOTE ---
Pt put on 2L NC, hygiene performed. No other changes, will continue to monitor.
[2023-10-13] MEDS: PROTONIX 100 IV ×2 (08:05→17:15)
[2023-10-13] MEDS: NOVOLOG FLEXPEN-LOW RESISTANCE SC ×2 (08:06→17:18)
[2023-10-13] MEDS: TYLENOL 650 MG PO (08:06)
[2023-10-13 08:13] LABS: Glucose - Point of Care 116 mg/dl (70-99)
[2023-10-13] MEDS: KCL 270 MEQ IV (09:09)
--- NOTE | 2023-10-13 10:06 | PTCARENOTE ---
Received pt this am in bed with ivf and protonix infusing peripherally as ordered. Pt c/o chronic low back pain. Medicated with tylenol as ordered with no relief. Pt assisted oob to chair with min assist and walker, shortly after wanted to get
back to bed because he was tired. Encouraged to remain oob as he is reporting feeling weak. Pt tolerating clears, spitting up clear mucus. Room air sats 95% while in chair. Denies sob. Otherwise assessment per flowsheet
Dr Salgado aware of back pain, orders pending.
Pt IMU level of care, vss.
[2023-10-13] MEDS: LR IV (11:02)
[2023-10-13 11:49] LABS: Glucose - Point of Care 150 mg/dl (70-99)
[2023-10-13] MEDS: NOVOLOG FLEXPEN-LOW RESISTANCE 1 UNITS SC (12:09)
[2023-10-13] MEDS: LIDOCAINE 4% PATCH 2 PATCH TOPICAL (12:10)
--- NOTE | 2023-10-13 12:19 | PTCARENOTE ---
pt assisted to walk in room and then back to bed. c/o of feeling dizzy, but vitals stable. lidoderm patches applied for low back pain. call gruber in reach.
--- NOTE | 2023-10-13 12:41 | W.PN.GI.CBS2 ---
Today's Communication / Plan
-
continue PPI gtt
clears
trend Hb
transfuse
Assessment / Plan
-
Pt is a 68yo with hx ASCVD, DM, PTCA and prior stent, anxiety/depression with recent endovascular repair of AAA on 10/07 with newly started Plavix. He developed nausea and vomiting after discharge with decreased oral intakes. He also reported
fatigue and lightheadedness with passage of black stool and noted on admission with concern for upper GI bleed. Pt hbg 13.3 on 10/08 then drop to 10.9 on return with noted tachycardia and WBC up to 31,[address] completed overnight and
seen by vascular surgery with stable endovascular repair and per nighthawk no obvious active bleeding noted.
-melena
-anemia
-leukocytosis
-tachycardia
-endovascular AAA repair - FEVAR with placement of renal artery stent with addition of Plavix
other medical problems:
-ASCVD
-DM
-PTCA with prior stent
-anxiety depression
PLAN:
Status post EGD 10/11 showed esophagitis, small hiatal hernia, 2 duodenal bulb nonbleeding ulcers and duodenitis
ASA and Plavix on hold last dose 10/10
Given significant drop in hemoglobin would transfuse 2 units of packed red blood cells
No further active bleeding noted, okay to resume aspirin tomorrow and if no further bleeding and needs DAPT given recent stent okay to resume Plavix in 3 to 4 days although patient adamantly refuses and he says that 'he will not go back on Plavix'
Continue Protonix drip for another 24 hours and if no further bleeding and hemoglobin stable will switch to twice daily in AM
Continue clear liquids
Subjective
Subjective
Date of Service: October 13, 2023
No further melena since admission. Hemoglobin dropped to 7.1 no nausea or vomiting no hematemesis
Objective
Data Reviewed
Laboratory Data:
Laboratory Results
10/13/23 05:12
10/13/23 05:12
Laboratory Results
PT 16.3 Sec (11.4-14.6) H 10/11/23 21:58
INR 1.33 10/11/23 21:58
APTT 30.7 Sec (23.4-35.0) 10/11/23 21:58
Total Bilirubin 0.5 mg/dl (0.2-1.3) 10/13/23 05:12
AST 19 U/L (17-59) 10/13/23 05:12
ALT 17 U/L (0-50) 10/13/23 05:12
Alkaline Phosphatase 52 U/L (38-126) 10/13/23 05:12
Vital Signs and I&O:
Vital Signs
Temp Pulse Resp BP Pulse Ox
98.2 F 82 15 140/60 95
10/13/23 11:44 10/13/23 10:00 10/13/23 10:00 10/13/23 10:00 10/13/23 09:00
I&O
10/12/23 10/13/23 10/14/23
06:59 06:59 06:59
Intake Total 1210 / 1320 1252.5 / 1252.5
Output Total 1200 / 1400 200 / 200
Balance 10 / -80 1052.5 / 1052.5
Physical Exam
Physical Exam
Cardiology: Normal Sinus Rhythm
Pulmonary: Clear
GI: Soft, Non Distended, Non Tender and Normal Bowel Sounds
[2023-10-13 14:10] LABS: Troponin I < 0.012 ng/ml
--- NOTE | 2023-10-13 14:49 | W.PN.HOSP.TC ---
Today's Communication/Plan
-
K repletion
transfuse 1 u
monitor cbc
hold asa
ppi ggt
Assessment / Plan
Assessment / Plan
Physical Exam
General: Other (68y M in no acute distress.)
HEENT: Other (Dry MM. )
Respiratory: Clear; No Wheezes, Rales or Rhonchi
Cardiac: S1/S2 and Tachycardia; No Murmur
GI: Other (Obese, no focal tenderness. Pos BS.)
Musculoskeletal: No Clubbing, No Cyanosis and No Edema
Neuro: AO x 3
A/P: Patient is a 68y M with PMH significant for ASCVD, DM-II and recent AAA repair who presents to ED complaining of N/V and black stools.
Acute Upper GI Bleed
Acute Blood Loss Anemia secondary to the above
- EGD 10/11: LA Grade B reflux esophagitis with no bleeding. Small hiatal hernia. Non-bleeding duodenal ulcers with no stigmata of bleeding. Erythematous duodenopathy.
-Continue present medications.
- No ibuprofen, naproxen, or other non-steroidal anti-inflammatory drugs.
- holding asa due to acute blood drop
- monitor Hb
- Continue PPI gtt
- clear liquids today
- Follow H&H and transfuse if needed - note 2g blood loss since discharge.
-transfuse 1 u today
Leukocytosis
- Significant leukocytosis -most likely reactive
-monitor wbc, fever curve
- CT done in the ED this evening with no obvious evidence for acute infectious process.
- Observe off of abx and follow for fever or other new symptoms / complaints.
- Monitor H&H and transfuse if needed.
- improving
Hypokalemia
-monitor and replete
AAA s/p Repair
- Endovascular repair completed on 10/[address] Servin.
- Holding DAPT acutely as noted above given significant bleeding event. see plan abovee
- Resume as soon as able.
- CT done as noted with no evidence of acute abnormality involving AAA graft, renal stents, etc.
- Vascular Surgery on board
ASCVD
- Stable. Prior coronary stenting x 2.
holding asa
DM-II
- Stable. Holding PO med acutely.
- Follow glucose and cover with SSI as needed.
- Update A1C.
DVT Prophylaxis: SCDs
Code Status: Full
Anticipated Discharge: > 48 hours
Subjective/Interval History
-
Date of Service: October 13, 2023
Symptoms improved although still feels comfortable, back pain
Objective Data
-
Labs:
Laboratory Results
10/13/23
05:12
WBC 17.1 H
Hgb 7.1 L
Hct 21.0 L
Plt Count 252
Sodium 137
Potassium 3.3 L
Chloride 112 H
Carbon Dioxide 25
BUN 28 H
Creatinine 0.7
Glucose 118 H
Calcium 7.6 L
Total Bilirubin 0.5
AST 19
ALT 17
Alkaline Phosphatase 52
Vital Signs:
Vital Signs
Temp Pulse Resp BP Pulse Ox
98.2 F 89 18 116/63 97
10/13/23 11:44 10/13/23 12:19 10/13/23 12:19 10/13/23 12:19 10/13/23 12:21
I&O
10/12/23 10/13/23 10/14/23
06:59 06:59 06:59
Intake Total 1210 / 1320 1740.0 / 1740.0
Output Total 1200 / 1400 450 / 450
Balance 10 / -80 1290.0 / 1290.0
Review of Systems
-
History Source: Patient
All other systems: Not reviewed unless documented
Data Reviewed
-
CT Scan: Image personally visualized and interpreted and Report Reviewed by me
Labs: Labs Reviewed by me
--- NOTE | 2023-10-13 15:01 | CM ---
CM following re: discharge planning.
Reviewed pt's chart, met with pt and pt's family at bedside.
[facility] liaison following.
D/C plan: remains unchanged - home with [facility] and family support. Family to transport at discharge.
CM will follow with discharge plan updates as hospitalization progresses
--- NOTE | 2023-10-13 15:19 | PTCARENOTE ---
iv team called to obtain second iv site
[2023-10-13 17:08] LABS: Glucose - Point of Care 128 mg/dl (70-99)
--- NOTE | 2023-10-13 17:25 | PTCARENOTE ---
recd pt 1530 IV team placed new line, card sent for blood as ordered. c/o restlessness, aware of scheduled tylenol, positioned for comfort, presently asleep/snoring. PC infusing, site patent. continues with protonix gtt.
[2023-10-13] MEDS: TYLENOL 1000 MG PO (18:31)
--- NOTE | 2023-10-13 19:34 | PTCARENOTE ---
Assumed care of pt at 1900. Pt is A/O x4, cooperative with care, able to make needs known. Pt receiving blood transfusion at start of shift, finished at 1930, pt tolerated well. SR 80s on monitor, SpO2 95-97% on RA. Physical assessment completed,
see nursing shift assessment flowsheet for full details. Protonix drip infusing. Pt currently lying in bed watching TV, call gruber and personal items within reach. Pt is IMU level of care.
[2023-10-13 22:49] LABS: Glucose - Point of Care 120 mg/dl (70-99)
[2023-10-14] VITALS (10 sets, daily range): BP systolic 99–127; BP diastolic 49–89; BMI 38.4
[2023-10-14] MEDS: PROTONIX 100 IV (00:29)
[2023-10-14] MEDS: TYLENOL PO ×2 (00:29→12:56)
[2023-10-14] MEDS: TYLENOL 1000 MG PO ×4 (00:33→23:38)
[2023-10-14 06:00] LABS: Hematocrit 22.7 % (39.0-52.0); Hemoglobin 7.9 g/dL (13.0-18.0); Mean Corp Hgb Conc. 34.8 g/dL (33.0-37.0); Mean Corpuscular Hgb 30.6 pg (27.0-31.0); Mean Platelet Volume 10.5 fL (7.4-10.4); Platelet Count 215 10^3/uL (130-400); Red Blood Cell Count 2.58 10^6/uL (4.70-6.10); Red Cell Dist. Width 15.5 % (11.5-14.5); White Blood Cell Count 12.8 10^3/uL (4.8-10.8)
[2023-10-14 06:26] LABS: ALT (SGPT) 32 U/L (0-50); AST (SGOT) 33 U/L (17-59); Albumin 2.6 g/dl (3.5-5.0); Alkaline Phosphatase 65 U/L (38-126); Blood Urea Nitrogen 15 mg/dl (9-20); Calcium 8.5 mg/dl (8.4-10.2); Carbon Dioxide 28 mmol/L (22-30); Chloride 106 mmol/L (98-107); Estimated Creatinine Clearance 120 ml/min; Glucose 117 mg/dl (70-99); Potassium 3.6 mmol/L (3.5-5.1); Sodium 137 mmol/L (135-145); Total Bilirubin 0.6 mg/dl (0.2-1.3); Total Protein 4.9 g/dl (6.3-8.2); eGFR > 60.00
[2023-10-14 07:31] LABS: Glucose - Point of Care 125 mg/dl (70-99)
[2023-10-14] MEDS: NOVOLOG FLEXPEN-LOW RESISTANCE SC ×3 (07:33→16:37)
[2023-10-14] MEDS: LIDOCAINE 4% PATCH TOPICAL (08:18)
--- NOTE | 2023-10-14 08:45 | PTCARENOTE ---
Assumed care of pt at 0715 following shift report. Pt awake and resting quietly in bed, having already eaten his CL breakfast.Tolerating diet well- no c/o nausea or abdominal pain. Denies any specific complaints although reports 'feel like I've been
hit by a truck' and pt asking if it is possible that he is going through 'withdraw because I haven't taken my Tramadol since 09/29- before I had my surgery'. Encouraged pt to mention his concern when seen by MD and TT sent to Dr Salgado notifying
him of pt's report. Physical assessment completed. Comfort care provided. Call gruber w/in pt reach and pt reminded to alert and wait for staff assistance prior to attempting to get OOB. Pt verbalized understanding.
--- NOTE | 2023-10-14 09:37 | W.PN.GI.CBS2 ---
Addendum entered and electronically signed by Smitha Hercules MD 10/14/23 15:12:
'Acute DU: seen on EGD
Addendum entered and electronically signed by Smitha Hercules MD 10/14/23 10:23:
I saw and examined the patient.
The BIOMEDICAL ENGINEERING TECHNICIAN's note was reviewed and I agree with the note.
Comment: Upper GI bleed with acute blood loss anemia, EGD showed esophagitis and non bleeding duodenal ulcers. No further bleeding and hemoglobin stable post 1 unit of packed red blood cells at 7.9 may need a second unit he still feels symptomatic
with fatigue and dizziness from the anemia. No further bleeding he has not had a bowel movement since admission and BUN trended down. Okay to resume aspirin today and patient does not want to restart Plavix but if he is agreeable okay to restart
in 2 to 3 days.
GI will sign off and will be available as needed, follow-up as outpatient.
Original Note:
Today's Communication / Plan
-
Status post EGD 10/11 showed esophagitis, small hiatal hernia, 2 duodenal bulb nonbleeding ulcers and duodenitis
ASA and Plavix on hold last dose 10/10 -- ok to resume ASA if needed today -- pt refused to restart Plavix but resume 2-3 days if pt willing
s/p 1 unit PRBC hbg up to 7.9 today, BUN normalized to 15
no stools overnight
advance to ADA diet
trend stools
transition to PO protonix BID
NSAID avoidance
will sign off from GI standpoint, call for any signs of rebleeding problems
OP follow up to review with colonoscopy with no screening in past
Assessment / Plan
-
Pt is a 68yo with hx ASCVD, DM, PTCA and prior stent, anxiety/depression with recent endovascular repair of AAA on 10/07 with newly started Plavix. He developed nausea and vomiting after discharge with decreased oral intakes. He also reported
fatigue and lightheadedness with passage of black stool and noted on admission with concern for upper GI bleed. Pt hbg 13.3 on 10/08 then drop to 10.9 on return with noted tachycardia and WBC up to 31,[address] completed overnight and
seen by vascular surgery with stable endovascular repair and per nighthawk no obvious active bleeding noted.
10/11 EGD - LA Grade B reflux esophagitis with no bleeding. small HH, non bleeding, duodenal ulcer no stigmata of bleeding, duodenopathy
Laboratory Tests
10/12/23 10/12/23 10/13/23
15:15 22:29 05:12
Hgb 9.0 L 8.3 L 7.1 L
10/14/23
05:36
Hgb 7.9 L
-melena
-EGD with duodenal ulcers
-anemia
-leukocytosis
-tachycardia
-endovascular AAA repair - FEVAR with placement of renal artery stent with addition of Plavix
other medical problems:
-ASCVD
-DM
-PTCA with prior stent
-anxiety depression
PLAN:
Status post EGD 10/11 showed esophagitis, small hiatal hernia, 2 duodenal bulb nonbleeding ulcers and duodenitis
ASA and Plavix on hold last dose 10/10 -- ok to resume ASA if needed today -- pt refused to restart Plavix but resume 2-3 days if pt willing
s/p 1 unit PRBC hbg up to 7.9 today, BUN normalized to 15
no stools overnight
advance to ADA diet
trend stools
transition to PO protonix BID
NSAID avoidance
will sign off from GI standpoint, call for any signs of rebleeding problems
OP follow up to review with colonoscopy with no screening in past
Subjective
Subjective
Date of Service: October 14, 2023
Pt feeling better, no stools on clear diet
Objective
Data Reviewed
Laboratory Data:
Laboratory Results
10/14/23 05:36
10/14/23 05:36
Laboratory Results
PT 16.3 Sec (11.4-14.6) H 10/11/23 21:58
INR 1.33 10/11/23 21:58
APTT 30.7 Sec (23.4-35.0) 10/11/23 21:58
Magnesium 2.0 mg/dl (1.6-2.3) 10/14/23 05:36
Total Bilirubin 0.6 mg/dl (0.2-1.3) 10/14/23 05:36
AST 33 U/L (17-59) 10/14/23 05:36
ALT 32 U/L (0-50) 10/14/23 05:36
Alkaline Phosphatase 65 U/L (38-126) 10/14/23 05:36
Vital Signs and I&O:
Vital Signs
Temp Pulse Resp BP Pulse Ox
98.4 F 67 17 122/66 100
10/14/23 07:09 10/14/23 06:03 10/14/23 06:03 10/14/23 06:03 10/14/23 06:03
I&O
10/13/23 10/14/23 10/15/23
06:59 06:59 06:59
Intake Total 1210 / 1320 2760.0 / 2760.0
Output Total 1200 / 1400 1850 / 1850
Balance 10 / -80 910.0 / 910.0
Physical Exam
Physical Exam
HEENT: Anicteric and Moist mucous membranes
Cardiology: Normal Sinus Rhythm
Pulmonary: Clear
GI: Soft, Non Distended and Non Tender
Neuro: Non Focal
--- NOTE | 2023-10-14 10:21 | PTCARENOTE ---
Protonix gtt d/c'ed per order. Pt OOB to BSC to have large soft black/dark brown BM- L. Ani CANDELARIA notified of stool color and amount- nursing to notify GI it pt has any further dark stools. Pt resting quietly in bed talking on phone. No new
complaints or changes.
[2023-10-14] MEDS: PROTONIX 40 MG PO ×2 (10:33→20:37)
--- NOTE | 2023-10-14 10:34 | W.PN.UPDATE ---
Update Note
Progress Note Update
Seen and examined. No significant change from a vascular perspective. Notes continued mild intermittent abdominal pain. Not food or eating related necessarily. Transfused yesterday hemoglobin 7.9. If noted to have only postprandial pain, would
consider angiography to more closely evaluate the origin of the SMA through the fenestration of the stent graft. However his pain does not seem to be as such. And on CT scan imaging best I can determine the fenestration appears patent. Will
follow peripherally. Please call with questions.
[2023-10-14 12:16] LABS: Glucose - Point of Care 124 mg/dl (70-99)
--- NOTE | 2023-10-14 12:54 | CM ---
CM following re: discharge planning.
Reviewed pt's chart, met with pt. Pt is downgraded from ICU level of care, continue supportive care.
[facility] liaison following.
D/C plan: remains unchanged - home with [facility] and family support. Family to transport at discharge.
CM will follow with discharge plan updates as hospitalization progresses
--- NOTE | 2023-10-14 13:00 | PTCARENOTE ---
Pt continues to rest quietly in bed. Declined scheduled Tylenol 'I'm not having any pain right now' and pt encouraged to notify staff if he develops pain and wishes to receive Tylenol. Pt expressed frustration around plan of care 'I'm just a guinea
pig that they are experimenting on' in relation to increasing his diet to solid foods 'they don't know if it is going to cause bleeding or not'. Education and emotional support provided to pt around diagnosis, treatment and plan of care. Pt then
verbalized better understanding of plan of care and an apology- 'I'm sorry I'm being so grumpy. You don't deserve that.' Pt encouraged to order lunch and phone provided for pt to use. Pt refusing to get OOB at this time 'I was out of bed to use the
commode earlier' Education provided to pt on benefit of increased activity and risks associated w/ bedrest- pt continues to refuse to get OOB. No additional changes from previous assessment findings. Call gruber remains w/in pt reach.
--- NOTE | 2023-10-14 14:06 | PN.CDI ---
CDI
- -
CDI:
Physician Documentation Request
Admit Date: 10/12/23 03:20
Dear Doctor Diomedes,
Patient admitted with upper GI bleed.
10/13 GI note, 'Upper GI bleed with acute blood loss anemia, EGD showed esophagitis and non bleeding duodenal ulcers.'
Please clarify which of the following accurately represents the likely acuity of the duodenal ulcers:
Acute
Acute on chronic
Chronic
Other
Use of terms such as suspected, likely, concern for, or probable (associated with a specific diagnosis that is being evaluated, monitored, or treated as if it exists) are acceptable and can be coded in the inpatient setting, when documented at the
time of discharge.
Thank you,
Rose Marie MARTIN,RN,CCDS
CDI Specialist
Available via Leo
Please use your independent medical judgment in providing your response.
--- NOTE | 2023-10-14 14:42 | PN.CDI ---
CDI
- -
CDI:
Physician Documentation Request
Admit Date: 10/12/23 03:20
Dear Doctor Naomi,
Patient admitted with upper GI bleed.
10/12 PN, 'Acute Upper GI Bleed....Acute Blood Loss Anemia.... Holding DAPT acutely as noted above given significant bleeding event.'
Please clarify the likely relationship between these conditions:
Yes, acute upper GI bleed/ ABLA is associated with/ enhanced by DAPT.
No, acute upper GI bleed/ ABLA is not associated with/ enhanced by DAPT but it is due to ___. (Please specify)
Unable to determine
Use of terms such as suspected, likely, concern for, or probable (associated with a specific diagnosis that is being evaluated, monitored, or treated as if it exists) are acceptable and can be coded in the inpatient setting, when documented at the
time of discharge.
Thank you,
Rose Marie MARTIN,RN,CCDS
[facility] Specialist
Available via [employer] text
Please use your independent medical judgment in providing your response.
--- NOTE | 2023-10-14 15:14 | W.PN.HOSP.TC ---
Today's Communication/Plan
-
PPI BID
Resume ASA and monitor HgB, trial plavix in 2-3 days
Reg Diet
Assessment / Plan
Assessment / Plan
Physical Exam
General: Other (68y M in no acute distress.)
HEENT: Other (Dry MM. )
Respiratory: Clear; No Wheezes, Rales or Rhonchi
Cardiac: S1/S2 and Tachycardia; No Murmur
GI: Other (Obese, no focal tenderness. Pos BS.)
Musculoskeletal: No Clubbing, No Cyanosis and No Edema
Neuro: AO x 3
A/P: Patient is a 68y M with PMH significant for ASCVD, DM-II and recent AAA repair who presents to ED complaining of N/V and black stools.
Acute Upper GI Bleed
Acute Blood Loss Anemia secondary to the above
- EGD 10/11: LA Grade B reflux esophagitis with no bleeding. Small hiatal hernia. Non-bleeding duodenal ulcers with no stigmata of bleeding. Erythematous duodenopathy.
-Continue present medications.
- No ibuprofen, naproxen, or other non-steroidal anti-inflammatory drugs.
- Resume ASA and monitor; if stable - can resume plavix in 2-3 days - he is amenable to trial plavix again
- PPI BID
-restart diet
- Follow H&H and transfuse if needed - note 2g blood loss since discharge.
-transfuse 1 u 10/12
Leukocytosis
- Significant leukocytosis -most likely reactive
-monitor wbc, fever curve
- CT done in the ED this evening with no obvious evidence for acute infectious process.
- Observe off of abx and follow for fever or other new symptoms / complaints.
- Monitor H&H and transfuse if needed.
- improving
Hypokalemia
-monitor and replete
AAA s/p Repair
- Endovascular repair completed on 10/[address] Servin.
- Holding DAPT acutely as noted above given significant bleeding event. see plan abovee
- Resume as soon as able.
- CT done as noted with no evidence of acute abnormality involving AAA graft, renal stents, etc.
- Vascular Surgery on board
ASCVD
- Stable. Prior coronary stenting x 2.
holding asa
DM-II
- Stable. Holding PO med acutely.
- Follow glucose and cover with SSI as needed.
- Update A1C.
DVT Prophylaxis: SCDs
Code Status: Full
Anticipated Discharge: Within 24 hours
Subjective/Interval History
-
Date of Service: October 14, 2023
responded appropriately to 1u prbc
Objective Data
-
Labs:
Laboratory Results
10/14/23
05:36
WBC 12.8 H
Hgb 7.9 L
Hct 22.7 L
Plt Count 215
Sodium 137
Potassium 3.6
Chloride 106
Carbon Dioxide 28
BUN 15
Creatinine 0.7
Glucose 117 H
Calcium 8.5
Total Bilirubin 0.6
AST 33
ALT 32
Alkaline Phosphatase 65
Vital Signs:
Vital Signs
Temp Pulse Resp BP Pulse Ox
98.5 F 66 15 109/57 97
10/14/23 15:09 10/14/23 10:00 10/14/23 10:00 10/14/23 10:00 10/14/23 08:30
I&O
10/13/23 10/14/23 10/15/23
06:59 06:59 06:59
Intake Total 1210 / 1320 2760.0 / 2770.0 270 / 270
Output Total 1200 / 1400 1850 / 1850 300 / 300
Balance 10 / -80 910.0 / 920.0 -30 / -30
Review of Systems
-
History Source: Patient
All other systems: Not reviewed unless documented
Data Reviewed
-
CT Scan: Image personally visualized and interpreted and Report Reviewed by me
Labs: Labs Reviewed by me
[2023-10-14 16:27] LABS: Glucose - Point of Care 114 mg/dl (70-99)
--- NOTE | 2023-10-14 16:30 | PTCARENOTE ---
Pt ambulated to BR w/ use of walker to attempt to have BM- passed flatus, no BM. Pt OOB in chair watching TV at present. No new complaints or changes noted from previous assessment findings.
[2023-10-14] MEDS: LOW STRENGTH ASPIRIN 81 MG PO (17:02)
--- NOTE | 2023-10-14 22:42 | PTCARENOTE ---
Assumed care of pt at 1900. Pt is telemetry level of care. SR 70s on monitor. Tolerating diet. Physical assessment completed, see nursing shift assessment flowsheet for full details. Oral care done by patient. Currently lying in bed watching TV,
call gruber and personal items within reach.
[2023-10-15] VITALS (8 sets, daily range): BP systolic 110–142; BP diastolic 48–72; BMI 38.4
[2023-10-15] MEDS: LIDOCAINE 4% PATCH 2 PATCH TOPICAL (05:46)
[2023-10-15] MEDS: TYLENOL 1000 MG PO ×4 (05:51→23:53)
[2023-10-15 06:04] LABS: Hematocrit 23.9 % (39.0-52.0); Hemoglobin 8.2 g/dL (13.0-18.0); Mean Corp Hgb Conc. 34.3 g/dL (33.0-37.0); Mean Corpuscular Hgb 30.3 pg (27.0-31.0); Mean Corpuscular Volume 88.2 fL (80.0-94.0); Mean Platelet Volume 10.7 fL (7.4-10.4); Platelet Count 254 10^3/uL (130-400); Red Blood Cell Count 2.71 10^6/uL (4.70-6.10); Red Cell Dist. Width 15.6 % (11.5-14.5); White Blood Cell Count 13.2 10^3/uL (4.8-10.8)
[2023-10-15 06:23] LABS: ALT (SGPT) 31 U/L (0-50); AST (SGOT) 28 U/L (17-59); Albumin 2.9 g/dl (3.5-5.0); Alkaline Phosphatase 68 U/L (38-126); Blood Urea Nitrogen 12 mg/dl (9-20); Calcium 8.6 mg/dl (8.4-10.2); Carbon Dioxide 27 mmol/L (22-30); Chloride 103 mmol/L (98-107); Estimated Creatinine Clearance 120 ml/min; Glucose 101 mg/dl (70-99); Potassium 3.4 mmol/L (3.5-5.1); Sodium 134 mmol/L (135-145); Total Bilirubin 0.5 mg/dl (0.2-1.3); Total Protein 5.3 g/dl (6.3-8.2); eGFR > 60.00
[2023-10-15] MEDS: NOVOLOG FLEXPEN-LOW RESISTANCE SC ×2 (07:25→12:58)
[2023-10-15] MEDS: LOW STRENGTH ASPIRIN 81 MG PO (07:31)
[2023-10-15] MEDS: FLUSH (NSS) 2 FLUSH IV (07:31)
[2023-10-15] MEDS: PROTONIX 40 MG PO ×2 (07:31→19:32)
[2023-10-15 07:35] LABS: Glucose - Point of Care 118 mg/dl (70-99)
--- NOTE | 2023-10-15 08:15 | PTCARENOTE ---
recd pt for tsf tele, assessed, ordered and ate breakfast, AM meds given. pt with no c/o except wanting to go home today. see documentation. report given to next RN for room 412-01. tolerating room air, sats 98%. no GI distress.
[2023-10-15] MEDS: KCL 270 MEQ IV (09:56)
--- NOTE | 2023-10-15 10:06 | TRANSFER ---
Arrived to unit from ICU. Call gruber within reach. Oriented to room.
[2023-10-15 11:54] LABS: Glucose - Point of Care 138 mg/dl (70-99)
[2023-10-15] MEDS: KCL ELIXIR 40 MEQ PO (13:51)
--- NOTE | 2023-10-15 13:56 | CM ---
CM following re: discharge planning.
Reviewed pt's chart, met with pt.
According to pt moist likely will be ready for discharge within 24 hours. Pt is aware. IMM reviewed, placed on chart, pt has a copy.
[facility] liaison following.
D/C plan: remains unchanged - home with [facility] and family/friends support. Family to transport at discharge.
CM will follow with discharge plan updates as hospitalization progresses
--- NOTE | 2023-10-15 13:57 | W.PN.HOSP.TC ---
Today's Communication/Plan
-
k repletion
start back plavix tomorrow and monitor
Assessment / Plan
Assessment / Plan
Physical Exam
General: Other (68y M in no acute distress.)
HEENT: Other (Dry MM. )
Respiratory: Clear; No Wheezes, Rales or Rhonchi
Cardiac: S1/S2 and Tachycardia; No Murmur
GI: Other (Obese, no focal tenderness. Pos BS.)
Musculoskeletal: No Clubbing, No Cyanosis and No Edema
Neuro: AO x 3
A/P: Patient is a 68y M with PMH significant for ASCVD, DM-II and recent AAA repair who presents to ED complaining of N/V and black stools.
Acute Upper GI Bleed
Acute Blood Loss Anemia secondary to the above
- EGD 10/11: LA Grade B reflux esophagitis with no bleeding. Small hiatal hernia. Non-bleeding duodenal ulcers with no stigmata of bleeding. Erythematous duodenopathy.
-Continue present medications.
- No ibuprofen, naproxen, or other non-steroidal anti-inflammatory drugs.
- Resume ASA and monitor; if stable - can resume plavix in tomorrow - he is amenable to trial plavix again
- PPI BID
-restart diet
- Follow H&H and transfuse if needed - note 2g blood loss since discharge.
-transfused 1 u 10/12
Leukocytosis
- Significant leukocytosis -most likely reactive
-monitor wbc, fever curve
- CT done in the ED this evening with no obvious evidence for acute infectious process.
- Observe off of abx and follow for fever or other new symptoms / complaints.
- Monitor H&H and transfuse if needed.
- improving
Hypokalemia
-monitor and replete
Hyponatremia
-mild
-ctm
AAA s/p Repair
- Endovascular repair completed on 10/[address] Servin.
- Resume ASA; start plavix tomorrow; see plan abovee
- Resume as soon as able.
- CT done as noted with no evidence of acute abnormality involving AAA graft, renal stents, etc.
- Vascular Surgery on board
ASCVD
- Stable. Prior coronary stenting x 2.
-started back on asa, start back on plavix tomorrow and monitor
DM-II
- Stable. Holding PO med acutely.
- Follow glucose and cover with SSI as needed.
- Update A1C 6.6
DVT Prophylaxis: SCDs
Code Status: Full
Anticipated Discharge: > 48 hours
Subjective/Interval History
-
Date of Service: October 15, 2023
No acute events
Objective Data
-
Labs:
Laboratory Results
10/15/23
05:44
WBC 13.2 H
Hgb 8.2 L
Hct 23.9 L
Plt Count 254
Sodium 134 L
Potassium 3.4 L
Chloride 103
Carbon Dioxide 27
BUN 12
Creatinine 0.7
Glucose 101 H
Calcium 8.6
Total Bilirubin 0.5
AST 28
ALT 31
Alkaline Phosphatase 68
Vital Signs:
Vital Signs
Temp Pulse Resp BP Pulse Ox
97.9 F 70 18 123/64 97
10/15/23 11:22 10/15/23 11:22 10/15/23 11:22 10/15/23 11:22 10/15/23 11:22
I&O
10/14/23 10/15/23 10/16/23
06:59 06:59 06:59
Intake Total 2760.0 / 2770.0 750 / 750 240 / 240
Output Total 1850 / 1850 2440 / 2440
Balance 910.0 / 920.0 -1690 / -1690 240 / 240
Review of Systems
-
History Source: Patient
All other systems: Not reviewed unless documented
Data Reviewed
-
CT Scan: Image personally visualized and interpreted and Report Reviewed by me
Labs: Labs Reviewed by me
--- NOTE | 2023-10-15 14:13 | CM ---
CM following re: discharge planning.
Reviewed pt's chart, met with pt.
[facility] liaison following.
D/C plan: remains unchanged - home with [facility] and family/friends support. Family to transport at discharge.
CM will follow with discharge plan updates as hospitalization progresses
--- NOTE | 2023-10-15 14:23 | PTCARENOTE ---
Patient unable to tolerate k rider due to 'burning sensation' from medication. 2 different IV sites attempted. Potassium rate lowered to 20 ml/hr and patient still unable to tolerate. Hospitalist made aware, K rider discontinued and PO K ordered.
--- NOTE | 2023-10-15 15:54 | PTCARENOTE ---
Patient reports 2 black BM this shift. Hospitalist made aware. Plan of care ongoing.
[2023-10-15 17:34] LABS: Glucose - Point of Care 205 mg/dl (70-99)
[2023-10-15] MEDS: NOVOLOG FLEXPEN-LOW RESISTANCE 2 UNITS SC (17:51)
[2023-10-15 21:26] LABS: Glucose - Point of Care 124 mg/dl (70-99)
--- NOTE | 2023-10-15 22:29 | PTCARENOTE ---
Patient reported X1 dark black BM. [facility] [employer] aware per order.
[2023-10-16 03:26] VITALS: BP 137/71
[2023-10-16] MEDS: TYLENOL 1000 MG PO (05:54)
[2023-10-16 07:41] LABS: Glucose - Point of Care 138 mg/dl (70-99)
[2023-10-16 08:04] VITALS: BP 121/67
[2023-10-16] MEDS: NOVOLOG FLEXPEN-LOW RESISTANCE SC ×2 (09:18→12:11)
[2023-10-16] MEDS: PROTONIX 40 MG PO (09:20)
[2023-10-16] MEDS: LIDOCAINE 4% PATCH 2 PATCH TOPICAL (09:21)
[2023-10-16] MEDS: LOW STRENGTH ASPIRIN 81 MG PO (09:21)
[2023-10-16 09:56] LABS: ALT (SGPT) 26 U/L (0-50); AST (SGOT) 24 U/L (17-59); Alkaline Phosphatase 72 U/L (38-126); Blood Urea Nitrogen 12 mg/dl (9-20); Calcium 8.8 mg/dl (8.4-10.2); Carbon Dioxide 26 mmol/L (22-30); Chloride 100 mmol/L (98-107); Estimated Creatinine Clearance 93 ml/min; Glucose 146 mg/dl (70-99); Potassium 3.9 mmol/L (3.5-5.1); Sodium 133 mmol/L (135-145); Total Bilirubin 0.4 mg/dl (0.2-1.3); Total Protein 5.4 g/dl (6.3-8.2); eGFR > 60.00
[2023-10-16 10:11] LABS: Hemoglobin 8.2 g/dL (13.0-18.0); Mean Corp Hgb Conc. 34.2 g/dL (33.0-37.0); Mean Corpuscular Hgb 30.1 pg (27.0-31.0); Mean Corpuscular Volume 88.2 fL (80.0-94.0); Mean Platelet Volume 10.6 fL (7.4-10.4); Platelet Count 318 10^3/uL (130-400); Red Blood Cell Count 2.72 10^6/uL (4.70-6.10); Red Cell Dist. Width 15.9 % (11.5-14.5); White Blood Cell Count 12.2 10^3/uL (4.8-10.8)
--- NOTE | 2023-10-16 10:19 | CM ---
Addendum entered by Amy Torres 10/16/23 12:24:
Patient seen bedside, discussed plan for discharge today. IMM reviewed, signed, placed in chart. Patient reports his friend will transport home, unsure of exact time but does have transportation home. [facility] on [facility] discharge.
Plan; home with [facility].
Original Note:
Patient seen bedside, reports no concerns at this time. CM reviewed chart, patient plan to return home with [facility] when medically stable. CM will continue to follow for all discharge planing needs.
Plan; home with [facility] when stable.
[2023-10-16 11:42] VITALS: BP 129/70
[2023-10-16 11:55] LABS: Glucose - Point of Care 117 mg/dl (70-99)
[2023-10-16] MEDS: TYLENOL PO (12:37)
--- NOTE | 2023-10-16 13:44 | W.PN.HOSP.TC ---
Addendum entered and electronically signed by Tim Salgado MD 10/16/23 16:52:
Yes, acute upper GI bleed/ ABLA is associated with/ enhanced by DAPT.
Addendum entered and electronically signed by Tim Salgado MD 10/16/23 16:42:
vascular aware and ok with plan
[id number]
Original Note:
Today's Communication/Plan
-
PPI BID
ASA - patient does not want Plavix - understands risks
f/u pcp, gi, vascular outpatient
Assessment / Plan
Assessment / Plan
Physical Exam
General: Other (68y M in no acute distress.)
HEENT: Other (Dry MM. )
Respiratory: Clear; No Wheezes, Rales or Rhonchi
Cardiac: S1/S2 and Tachycardia; No Murmur
GI: Other (Obese, no focal tenderness. Pos BS.)
Musculoskeletal: No Clubbing, No Cyanosis and No Edema
Neuro: AO x 3
A/P: Patient is a 68y M with PMH significant for ASCVD, DM-II and recent AAA repair who presents to ED complaining of N/V and black stools.
Acute Upper GI Bleed
Acute Blood Loss Anemia secondary to the above
- EGD 10/11: LA Grade B reflux esophagitis with no bleeding. Small hiatal hernia. Non-bleeding duodenal ulcers with no stigmata of bleeding. Erythematous duodenopathy.
-Continue present medications.
- No ibuprofen, naproxen, or other non-steroidal anti-inflammatory drugs.
- Resume ASA; patient adamant on not taking plavix despite having conversation of risks. patient vocalizes understanding and accepts risks of not taking plavix. will remain on ASA.
-F/u CBC outpatient
- PPI BID
-restart diet
- Follow H&H and transfuse if needed - note 2g blood loss since discharge.
-transfused 1 u 10/12
Leukocytosis
- Significant leukocytosis -most likely reactive
-monitor wbc, fever curve
- CT done in the ED this evening with no obvious evidence for acute infectious process.
- Observe off of abx and follow for fever or other new symptoms / complaints.
- Monitor H&H and transfuse if needed.
- improving
Hypokalemia
-monitor and replete
Hyponatremia
-mild
-ctm
-f/u bmp outpatient
AAA s/p Repair
- Endovascular repair completed on 10/[address] Servin.
- Resume ASA; start plavix tomorrow; see plan abovee
- Resume as soon as able.
- CT done as noted with no evidence of acute abnormality involving AAA graft, renal stents, etc.
- Vascular Surgery on board
ASCVD
- Stable. Prior coronary stenting x 2.
-started back on asa, start back on plavix tomorrow and monitor
DM-II
- Stable. Holding PO med acutely.
- Follow glucose and cover with SSI as needed.
- Update A1C 6.6
DVT Prophylaxis: SCDs
Code Status: Full
More than 30 minutes spent in discharge including
Final examination of the patient
Summarizing hospital stay
Instructions for continuing care to all relevant caregivers
Preparation of discharge records, prescriptions, and referral forms
Total time spent (35 in minutes):
Anticipated Discharge: Today
Subjective/Interval History
-
Date of Service: October 16, 2023
no acute events
Objective Data
-
Labs:
Laboratory Results
10/16/23
08:52
WBC 12.2 H
Hgb 8.2 L
Hct 24.0 L
Plt Count 318 D
Sodium 133 L
Potassium 3.9
Chloride 100
Carbon Dioxide 26
BUN 12
Creatinine 0.9
Glucose 146 H
Calcium 8.8
Total Bilirubin 0.4
AST 24
ALT 26
Alkaline Phosphatase 72
Vital Signs:
Vital Signs
Temp Pulse Resp BP Pulse Ox
98.4 F 89 18 129/70 97
10/16/23 11:42 10/16/23 11:42 10/16/23 11:42 10/16/23 11:42 10/16/23 11:42
I&O
10/15/23 10/16/23 10/17/23
06:59 06:59 06:59
Intake Total 750 / 750 2100 / 2100
Output Total 2440 / 2440 2175 / 2175 600 / 600
Balance -1690 / -1690 -75 / -75 -600 / -600
Review of Systems
-
History Source: Patient
All other systems: Not reviewed unless documented
Data Reviewed
-
CT Scan: Image personally visualized and interpreted and Report Reviewed by me
Labs: Labs Reviewed by me
--- NOTE | 2023-10-16 13:47 | W.DS.TRANS ---
DC Summary - [employer]
-
Discharge Instructions:
Discharge Diagnosis/Procedures Acute Upper GI Bleed
Acute Blood Loss Anemia
Diet Low Cholesterol,Low Fat
Activity As tolerated
Blood Work cbc, bmp in 3-5 days with pcp
Instructions: Gastrointestinal Bleeding (DC)
Stand-Alone Forms:
Changes to Home Medications: Yes
Discharge Medications:
DC Medications w/original date entered in [employer]
pregabalin 150 mg capsule 150 mg PO BID Pain 09/21/23
tramadol 50 mg tablet 50 mg PO TID Pain 09/21/23
aspirin 81 mg chewable tablet 81 mg PO DAILY Blood Clot Prevention/Tx 09/30/23
rosuvastatin 40 mg tablet 40 mg PO DAILY High Cholesterol 09/30/23
cholecalciferol (vitamin D3) 25 mcg (1,000 unit) capsule (Vitamin D3) 25 mcg PO HS Supplement 10/08/23
metformin 500 mg tablet 500 mg PO BID Diabetes 10/11/23
pantoprazole 40 mg tablet,delayed release 40 mg PO BID 30 days #60 tabs 10/16/23
Home Medication Changes
pantoprazole 40 mg tablet,delayed release 40 mg PO BID 30 days #60 tabs 10/16/23
Stop plavix
Pending Results: No
== END 2023-10-16 14:56 | disposition home health service (06) | DRG 813 ==
LOC: 4 EAST ACU 03:20
PROVIDERS: Clinical Nurse Specialist Family Health; Nurse Practitioner Adult Health; ADMITTING PHYSICIAN Hospitalist; ATTENDING PHYSICIAN Internal Medicine; CONSULT PHYSICIAN Internal Medicine Gastroenterology; EMERGENCY PHYSICIAN Emergency Medicine; FAMILY PHYSICIAN Family Medicine
PROC: 0DJ08ZZ Inspection of Upper Intestinal Tract, Via Natural or Artificial Opening Endoscopic (ICD-10-PCS; 2023-10-12)
PROC: 30233N1 Transfusion of Nonautologous Red Blood Cells into Peripheral Vein, Percutaneous Approach (ICD-10-PCS; 2023-10-13)
DX: D68.32 Hemorrhagic disorder due to extrinsic circulating anticoagulants (principal); K26.4 Chronic or unspecified duodenal ulcer with hemorrhage; D62 Acute posthemorrhagic anemia; E87.1 Hypo-osmolality and hyponatremia; M48.56XA Collapsed vertebra, not elsewhere classified, lumbar region, initial encounter for fracture; E11.9 Type 2 diabetes mellitus without complications; F32.A Depression, unspecified; Z86.74 Personal history of sudden cardiac arrest; E87.6 Hypokalemia; T45.525A Adverse effect of antithrombotic drugs, initial encounter; D72.829 Elevated white blood cell count, unspecified; E78.00 Pure hypercholesterolemia, unspecified; E86.0 Dehydration; F41.9 Anxiety disorder, unspecified; G43.909 Migraine, unspecified, not intractable, without status migrainosus; I25.10 Atherosclerotic heart disease of native coronary artery without angina pectoris; K21.00 Gastro-esophageal reflux disease with esophagitis, without bleeding; K31.89 Other diseases of stomach and duodenum; K42.9 Umbilical hernia without obstruction or gangrene; N20.0 Calculus of kidney; K44.9 Diaphragmatic hernia without obstruction or gangrene; R32 Unspecified urinary incontinence; R15.9 Full incontinence of feces; R19.7 Diarrhea, unspecified; Z96.659 Presence of unspecified artificial knee joint; Z98.890 Other specified postprocedural states; Z79.02 Long term (current) use of antithrombotics/antiplatelets; Z79.82 Long term (current) use of aspirin; Z79.899 Other long term (current) drug therapy; Z86.79 Personal history of other diseases of the circulatory system; Z85.820 Personal history of malignant melanoma of skin; Z87.891 Personal history of nicotine dependence; Z95.5 Presence of coronary angioplasty implant and graft; Z87.19 Personal history of other diseases of the digestive system
CPT/HCPCS: 74177; 80048; 80053; 81003; 81015; 82962; 83036; 83735; 84484; 85014; 85018; 85025; 85027; 85610; 85730; 86850; 86900; 86901; 86920; 93005; 96374; 96375; 96376; 99285; P9016; Q9967

== ENCOUNTER → 2024-05-05 16:43 | Outpatient (REF) | payer OTHER, SELFPAY | LOC: RAD 16:43 | PROVIDERS: ATTENDING PHYSICIAN Surgery Vascular Surgery; PRIMARYCARE PHYSICIAN Family Medicine | DX: Z98.890 Other specified postprocedural states (principal) | CPT/HCPCS: 71275; 74174; Q9967 ==